=== PATIENT | male | born 1990 | race Caucasian/White ===

== ENCOUNTER 2020-12-09 17:12 | Emergency (ER) | payer MEDICAID, SELFPAY | END 2020-12-09 18:40 | disposition left against medical advice (07) | PROVIDERS: Emergency Provider Emergency Medicine | DX: Z76.0 Encounter for issue of repeat prescription (principal) ==

== ENCOUNTER 2020-12-11 08:26 | Emergency (ER) | payer MEDICAID, SELFPAY ==
[2020-12-11 08:32] VITALS: BP 122/80; PULSE 99; RESP 16; TEMP 36.4; O2SAT 100; BMI 18.4
[2020-12-11 10:01] LABS: MANUAL DIFF FLAG NO
[2020-12-11 10:03] LABS: Basophils Percent Auto 0.2 % (0-2); Eosinophils Absolute Auto 0.1 X10*3/uL (0.0-0.4); Eosinophils Percent Auto 1.7 % (0-4); Hematocrit 44.4 % (42-52); Imm Gran Abs Auto 0.02 X10*3/uL (0.00-0.03); Imm Gran Pct Auto 0.4 % (0.0-0.4); Lymphocytes Absolute Auto 1.5 X10*3/uL (1.2-4.9); Lymphocytes Percent Auto 33.1 % (20-40); Mean Corpuscular HGB Conc 33.8 g/dl (31.0-36.0); Mean Corpuscular Volume 91.7 fL (80-98); Mean Platelet Volume 9.1 fL (9.4-12.4); Monocytes Absolute Auto 0.7 X10*3/uL (0.1-1.2); Monocytes Percent Auto 15.3 % (2-11); Neutrophils Absolute Auto 2.3 X10*3/uL (2.0-8.3); Neutrophils Percent Auto 49.3 % (45-73); Platelet Count 218 X10*3/uL (160-400); Red Blood Count 4.84 X10*6/uL (4.60-5.80); Red Cell Distribution Width 12.1 % (11.0-16.0); White Blood Count 4.6 X10*3/uL (4.8-10.8)
[2020-12-11 10:18] LABS: Alanine Aminotransferase 57 U/L (0-40); Albumin Level 4.3 g/dL (3.5-5.0); Alkaline Phosphatase 65 U/L (39-117); Anion Gap 11 (12-20); Aspartate Amino Transferase 34 U/L (5-37); Bilirubin Total 0.5 mg/dL (0.0-1.0); Blood Urea Nitrogen 14 mg/dL (9-16); Calcium 10.1 mg/dL (8.4-10.2); Carbon Dioxide 30 mmol/L (22-29); Chloride 102 mmol/L (96-108); Creatinine Clr Calc Pharmacy 106.5; Estimated Glomerular Filt Rate > 60; Glucose Random 83 mg/dL (60-115); Potassium 4.9 mmol/L (3.3-5.1); Sodium 138 mmol/L (135-145); Total Protein 7.8 g/dL (6.5-8.0)
--- NOTE | 2020-12-11 18:55 | ED_ITS ---
HPI - General Adult General Chief complaint: General Medical Stated complaint: med refill Time Seen by Provider: 12/11/20 09:09 Source: patient Mode of arrival: ambulatory Limitations: no limitations History of Present Illness HPI narrative: 30-year-old male who is HIV positive presents for med refill request of his Biktarvy. The patient was prescribed this last from [facility] in [place], patient has not had this medication for over a year. Patient reports being afraid to go outside due to the COVID pandemic. Patient diagnosed HIV positive 3 years ago. Patient has had no new sex partners, has a steady boyfriend. Patient is afraid to get the COVID vaccine, but thinks maybe he should. Patient feels well, no physical complaints. He does tell me that he recently stopped abusing methamphetamines 9 days ago. Related Data Previous Rx's Medication Instructions Recorded bictegravir 50 mg-emtricitabine 1 tab PO DAILY #30 tab 12/11/20 200 mg-tenofovir alafenam 25 mg tablet (Biktarvy) Allergies Allergy/AdvReac Type Severity Reaction Status Date / Time shellfish derived Allergy Swelling Verified 12/11/20 08:35 Review of Systems Constitutional: Constitutional: Denies body ache(s), Denies chills, Denies fatigue, Denies fever(s), Denies headache(s), Denies malaise and Denies weakness Eyes: Eyes: Denies diplopia ENT: Denies vertigo, Denies dizziness, Denies otalgia, Denies headache(s), Denies mouth pain, Denies post nasal drip, Denies sinus pain, Denies sinus pressure, Denies sore throat and Denies throat swelling Cardiovascular: Cardiovascular: Denies chest pain, Denies syncope, Denies leg edema, Denies lightheadedness, Denies Loss of Consciousness, Denies palpitations and Denies dyspnea Respiratory: Respiratory: Denies chest congestion, Denies cough and Denies dyspnea Musculoskeletal: Musculoskeletal: Reports no additional musculoskeletal complaints Neurologic: Denies confusion, Denies vertigo, Denies dizziness, Denies syncope, Denies headache(s) and Denies weakness Psychiatric: Psychiatric: Denies anxiety, Denies confusion and Denies depression Endocrine: Endocrine: Denies fatigue and Denies palpitations Allergic/Immunologic: Allergic/Immunologic: Denies throat swelling PMFSH Past Medical History Medical History HIV (human immunodeficiency virus infection) Social History Social History Advance Directives: No Advance Directives Information Provided: No Physical Exam Vital Signs: Vital Signs: Last Vital Signs Temp 97.5 F 12/11/20 08:32 Pulse 99 12/11/20 08:32 Resp 16 12/11/20 08:32 BP 122/80 12/11/20 08:32 Pulse Ox 100 12/11/20 08:32 Body Mass Index 18.4 Const: General: No confusion Nutritional Appearance: well nourished Orientation/consciousness: No confusion Limitations: no limitations HENMT: Head: Yes normal to inspection, Yes normocephalic and Yes atraumatic Ears: hearing grossly normal bilaterally, external ears normal, TM's normal bilaterally and EAC's normal General nose exam: Normal external nose present Face and sinus: Yes normal facial exam and Yes sinuses nontender Mouth: Normal oral and palatal mucosa present Throat: Yes posterior oropharynx normal Eyes: Conjunctivae: conjunctivae normal Pupils: Equal, round and reactive pupils present EOM: EOMs intact bilaterally Neck: Neck: Yes full ROM, Yes no lymphadenopathy and Yes supple Resp: Effort & Inspection: normal respiratory effort and able to speak in complete sentences Auscultation: clear to auscultation bilaterally, no crackles, no rales, no rhonchi and no wheezes Cardio: Rate: regular rate Rhythm: regular rhythm Heart sounds: S1 normal heart sound present and S2 normal heart sound present Skin: General skin exam: no rashes or lesions noted Neuro: General: No confusion Cranial nerves: Yes Equal, round and reactive pupils present Extrem: General: Yes normal to inspection and Yes full ROM Psych: Appearance: grossly normal Affect: normal affect Attitude: co operative Thought process: Normal thought process present Course Course Course Narrative: A 30-year-old HIV-positive presents for medication refill. Liver function tests just mildly elevated. Patient does not have a PCP, gave patient list of [place] PCPs to call. Took HIV titers, counseled patient that this would be good to have a baseline to see how the medication is working, and can be something that his primary care provider, when he finds one, can access and follow. Medical Decision Making Lab Data Result diagrams: 12/11/20 09:54 12/11/20 09:54 Labs: Lab Results 12/11/20 12/11/20 Range/Units 09:54 09:54 WBC 4.6 L (4.8-10.8) X10*3/uL RBC 4.84 (4.60-5.80) X10*6/uL Hgb 15.0 (14.0-18.0) g/dl Hct 44.4 (42-52) % MCV 91.7 (80-98) fL MCH 31.0 (27.0-33.0) pg MCHC 33.8 (31.0-36.0) g/dl RDW 12.1 (11.0-16.0) % Plt Count 218 (160-400) X10*3/uL MPV 9.1 L (9.4-12.4) fL Immature Gran % (Auto) 0.4 (0.0-0.4) % Neut % (Auto) 49.3 (45-73) % Lymph % (Auto) 33.1 (20-40) % [place] % (Auto) 15.3 H (2-11) % Eos % (Auto) 1.7 (0-4) % Baso % (Auto) 0.2 (0-2) % Lymph # (Auto) 1.5 (1.2-4.9) X10*3/uL [place] # (Auto) 0.7 (0.1-1.2) X10*3/uL Eos # (Auto) 0.1 (0.0-0.4) X10*3/uL Baso # (Auto) 0.0 (0.0-0.2) X10*3/uL Abs Immat Gran (auto) 0.02 (0.00-0.03) X10*3/uL Absolute Neuts (auto) 2.3 (2.0-8.3) X10*3/uL Absolute Nucleated RBC 0.000 (0.0-0.012) X10*3/uL Nucleated RBC % (auto) 0.0 (0.0-0.2) /100WBC Sodium 138 (135-145) mmol/L Potassium 4.9 (3.3-5.1) mmol/L Chloride 102 (96-108) mmol/L Carbon Dioxide 30 H (22-29) mmol/L Anion Gap 11 L (12-20) BUN 14 (9-16) mg/dL Creatinine 0.82 (0.5-1.4) mg/dL Estim Creat Clear Calc 106.5 Estimated GFR > 60 Random Glucose 83 (60-115) mg/dL Calcium 10.1 (8.4-10.2) mg/dL Total Bilirubin 0.5 (0.0-1.0) mg/dL AST 34 (5-37) U/L ALT 57 H (0-40) U/L Alkaline Phosphatase 65 (39-117) U/L Total Protein 7.8 (6.5-8.0) g/dL Albumin 4.3 (3.5-5.0) g/dL Discharge Plan Discharge Clinical Impression: HIV disease Patient Disposition: Home, Self-Care Instructions: HIV Transmission (ED), HIV Infection (ED) Additional Instructions: PLease flower buncher or picker the Biktary from the pharmacy. Please call 1 of the primary care doctors on the list to establish care. If they are part of the [facility]ista call system, they will have access to her labs. Your HIV titers will not come back today, but a future PCP will be able to access them. I am very excited for you to get your COVID vaccination today! I hope that goes well. Prescriptions: New Biktarvy 50-200-25 mg tablet 1 tab PO DAILY Qty: 30 RF: 1 Interventions: ED Discharge Assessment Last Done: 12/11/20 10:57 Discharge Date/Time: 12/11/20 10:58
[2020-12-15 12:12] LABS: HIV RNA PCR Qn Copies 68800 copies/mL (NOT DETECTED); HIV RNA PCR Qn Log Copies 4.84 (NOT DETECTED)
== END 2020-12-11 10:58 | disposition home or self-care (01) ==
PROVIDERS: Physician Assistant; Emergency Provider Emergency Medicine Emergency Medical Services
DX: Z76.0 Encounter for issue of repeat prescription (principal); Z21 Asymptomatic human immunodeficiency virus [HIV] infection status; Z79.899 Other long term (current) drug therapy
CPT/HCPCS: 36415; 80053; 85025; 87536; 99283

== ENCOUNTER 2021-04-10 14:36 | Emergency (ER) | payer MEDICAID, SELFPAY ==
--- NOTE | 2021-04-10 | ECG_ITS ---
Test Reason : Chest Pain Blood Pressure : / mmHG Vent. Rate : 106 BPM Atrial Rate : 106 BPM P-R Int : 136 ms QRS Dur : 082 ms QT Int : 310 ms P-R-T Axes : 082 097 067 degrees QTc Int : 411 ms Sinus tachycardia Right atrial enlargement Rightward axis Pulmonary disease pattern Abnormal ECG No previous ECGs available Referred By: Generic ED Physician Electronically Signed By:ELY MATHIS MD
--- NOTE | ~2021-04-10 | XR_ITS ---
EXAMINATION: PORTABLE CHEST 1 VIEW CLINICAL INFORMATION: chest pain, sob . COMPARISON: No recent pertinent prior studies are available for comparison. TECHNIQUE: Portable frontal view of the chest was obtained. FINDINGS: The lungs are well expanded. No focal infiltrate, effusion, edema, or pneumothorax. Cardiac and mediastinal silhouettes are within normal limits for technique. No acute bony abnormality seen. XR/XR chest 1V IMPRESSION: No evidence of acute disease.
[2021-04-10 15:00] VITALS: BP 118/71; PULSE 103; TEMP 36.9; O2SAT 98; BMI 19.2
[2021-04-10 15:24] LABS: IDNOW Serial# 9DD0AD1C; Strep A Nucleic Acid Negative (Negative)
[2021-04-10 15:29] LABS: COVID-19 Test Negative (Negative)
--- NOTE | 2021-04-10 17:24 | ED_ITS ---
HPI - Chest Pain General Chief Complaint: Chest Pain Stated Complaint: chest pain/throat pain Time Seen by Provider: 04/10/21 17:24 Source: patient Mode of arrival: ambulatory Limitations: no limitations History of Present Illness HPI narrative: This is a 31-year-old male pmhx crystal meth abuse, HIV (stopped taking medication recently) that presents to the emergency department with a sore throat and palpitations since this morning. Patient tells me that he feels like his throat is very full, and it stings a little bit. He tells me that he has been having palpitations/chest discomfort, worse with anxiety. Patient tells me that this happens intermittently. He tells me he is under lot of stress/anxiety, he is tearful upon my exam. He tells me that his partner March 06, he used to be homeless and use to live out of the vehicle of his partner out [place] the [place], when his partner diet he moved to [facility] where his mother lives. He tells me he has no resources, no primary care provider. He tells me he is HIV positive however he has not been receiving treatment, he tells me he was using a lot of crystal meth, tells me he has not used for a few days. He tells me he is trying to seek detox, he is feeling anxious and depressed. He is also feeling hopeless however he is not suicidal or homicidal. He denies visual, auditory and tactile hallucinations. He denies homicidal ideation. He has no other complaints at this time. MD complaint: chest pain Onset (ago): day(s) (1) Timing of current episode: episodic Prior episodes: Yes Pain location: substernal Pain radiation: none Severity: mild Quality: tightness Relieving factors: nothing Exacerbating factors: stress Treatment prior to arrival: none Related Data Previous Rx's Medication Instructions Recorded bictegravir 50 mg-emtricitabine 1 tab PO DAILY #30 tab 12/11/20 200 mg-tenofovir alafenam 25 mg tablet (Biktarvy) Allergies Allergy/AdvReac Type Severity Reaction Status Date / Time shellfish derived Allergy Swelling Verified 12/11/20 08:35 Review of Systems Review of Systems: Constitutional : No Weight loss, No Fever, No Chills, No Fatigue, No Malaise ENT/Mouth : No sore throat, No Rhinorrhea Eyes: No Eye Pain, No Swelling, No Redness Cardiovascular : No Chest Pain, No SOB, No Dyspnea on Exertion, No Orthopnea, No Edema, + Palpitations Respiratory : No Cough, No Sputum, No Wheezing Gastrointestinal : No Nausea, No Vomiting, No Diarrhea, No Constipation, No abdominal Pain, No Hematochezia, No Melena Genitourinary : No Dysuria, No Urinary Frequency, No Hematuria, Musculoskeletal : No joint pain, No Myalgias, No Joint Swelling Skin : No Skin Lesions, No rash Neuro : No Weakness, No Numbness, No Dizziness, No Headache Psych : + Anxiety/Panic, + Depression No SI/HI All other systems reviewed and are negative Yes all other systems are reviewed and are negative [facility] Past Medical History Attestation statement: The following information was validated with the patient. Source: old records reviewed and nursing notes reviewed Medical History HIV (human immunodeficiency virus infection) Social History Social History Advance Directives: No Advance Directives Information Provided: No Physical Exam Vital Signs: Vital Signs: Last Vital Signs Temp 98.2 F 04/10/21 17:57 Pulse 99 04/10/21 17:57 Resp 20 04/10/21 17:57 BP 125/64 04/10/21 17:57 Pulse Ox 99 04/10/21 17:57 BMI result Body Mass Index 19.2 VSS Appearance: Alert.? Oriented X3.? No acute distress.?Appears anxious. Head: Normocephalic, atraumatic, no step-offs or deformities Eyes: Pupils equal, round and reactive to light.? ENT: Pharynx normal.? Neck: Normal inspection.? Neck supple.? CVS: Normal heart rate and rhythm.? Pulses normal.? Respiratory: No respiratory distress.? Breath sounds normal.? Abdomen: Soft and nontender.? Skin: Skin warm and dry.? Normal skin color.? Normal skin turgor.? Extremities: No lower extremity edema.? No calf ttp. 5/5 strength to bilateral upper and lower extremities Back: No midline tenderness, no C-spine tenderness, full range of motion, no CVA tenderness bilaterally Neuro: Oriented X 3.? No motor deficit.? No sensory deficit. CN 2-12 intact Course Reevaluation(s) Reevaluation #1: Patient notes CBC with no acute abnormalities, chemistry with no acute electrolyte abnormalities. Transaminases noted to be slightly elevated. Patient's urine is clean. Strep negative. COVID negative. Time: 18:38 Reevaluation #2: Chest x-ray within normal limits. EKG WNL. Trop negative. Unlikley ACS. Patient tells me he thinks his throat is hurting because he has been crying so much since he lost his partner. At this time patient will be placed in physician observation to allow more time for patient to be evaluated by the behavioral health team. At time that evaluation was started patient was tearful, anxious denying SI and HI. Vital signs were stable. Time: 20:14 MDM - Chest Pain MDM Narrative Medical decision making narrative: [birth year] 31 yo m pmhx hiv presents to ed w/ complaints of palpitations, sore thorat, anxiety, depression and seeking detox X1 days. Patient reports using crystal meth regularly. Reports recently losing his significant other. Has a diagnosis of HIV however he is stop treatment due to his crystal meth use. He is seeking help. Physical exam benign Plan at this time is to obtain basic labs, troponin, EKG, MENDEZ, UA. Will rule out ACS. However, history most consistent with anxiety. Medical Records Data Attestation: I reviewed the patient's medical records. Lab Data Attestation: I reviewed the patient's lab results. Result diagrams: 04/10/21 17:55 04/10/21 17:55 Labs: Lab Results 04/10/21 04/10/21 04/10/21 Range/Units 15:06 15:13 17:55 WBC 6.6 (4.8-10.8) X10*3/uL RBC 4.73 (4.60-5.80) X10*6/uL Hgb 14.7 (14.0-18.0) g/dl Hct 42.8 (42.0-52.0) % MCV 90.5 (80.0-98.0) fL MCH 31.1 (27.0-33.0) pg MCHC 34.3 (31.0-36.0) g/dl RDW 12.6 (11.0-16.0) % Plt Count 252 (160-400) X10*3/uL MPV 9.4 (9.4-12.4) fL Immature Gran % (Auto) 0.8 H (0.0-0.4) % Neut % (Auto) 48.0 (45-73) % Lymph % (Auto) 36.3 (20-40) % [place] % (Auto) 13.2 H (2-11) % Eos % (Auto) 1.4 (0-4) % Baso % (Auto) 0.3 (0-2) % Lymph # (Auto) 2.4 (1.2-4.9) X10*3/uL [place] # (Auto) 0.9 (0.1-1.2) X10*3/uL Eos # (Auto) 0.1 (0.0-0.4) X10*3/uL Baso # (Auto) 0.0 (0.0-0.2) X10*3/uL Abs Immat Gran (auto) 0.05 H (0.00-0.03) X10*3/uL Absolute Neuts (auto) 3.2 (2.0-8.3) x10*3/uL Absolute Nucleated RBC 0.000 (0.0-0.012) X10*3/uL Nucleated RBC % (auto) 0.0 (0.0-0.2) /100WBC Sodium (135-145) mmol/L Potassium (3.3-5.1) mmol/L Chloride (96-108) mmol/L Carbon Dioxide (22-29) mmol/L Anion Gap (12-20) BUN (9-16) mg/dL Creatinine (0.5-1.4) mg/dL Estim Creat Clear Calc Estimated GFR Random Glucose (60-115) mg/dL Calcium (8.4-10.2) mg/dL Total Bilirubin (0.0-1.0) mg/dL AST (5-37) U/L ALT (0-40) U/L Alkaline Phosphatase (39-117) U/L Troponin I High Sens (<3.5-35.0) ng/L Total Protein (6.5-8.0) g/dL Albumin (3.5-5.0) g/dL Urine Color Urine Appearance Urine pH (5.0-8.0) Ur Specific [place] (1.005-1.025) Urine Protein (NEG-TRACE) MG/DL Urine Glucose (UA) (NEG) MG/DL Urine Ketones (NEG) MG/DL Urine Blood (NEG) Urine Nitrite (NEG) Ur Leukocyte Esterase (NEG) Urine RBC (0) /HPF Urine WBC (0-4) /HPF Ur Squamous Epith Cells /LPF Urine Bacteria /LPF Urine Opiates Screen (Not Detect) Urine Fentanyl Screen (Not Detect) Ur Barbiturates Screen (Not Detect) Ur Phencyclidine Scrn (Not Detect) Ur Amphetamines Screen (Not Detect) U Benzodiazepines Scrn (Not Detect) Urine Cocaine Screen (Not Detect) U Marijuana (THC) Screen (Not Detect) COVID-19 (JOSÉ MIGUEL) Negative (Negative) COVID-19 Clin Com See Note S. pyogenes GrpA JONEL Negative (Negative) 04/10/21 04/10/21 04/10/21 Range/Units 17:55 17:55 18:05 WBC (4.8-10.8) X10*3/uL RBC (4.60-5.80) X10*6/uL Hgb (14.0-18.0) g/dl Hct (42.0-52.0) % MCV (80.0-98.0) fL MCH (27.0-33.0) pg MCHC (31.0-36.0) g/dl RDW (11.0-16.0) % Plt Count (160-400) X10*3/uL MPV (9.4-12.4) fL Immature Gran % (Auto) (0.0-0.4) % Neut % (Auto) (45-73) % Lymph % (Auto) (20-40) % [place] % (Auto) (2-11) % Eos % (Auto) (0-4) % Baso % (Auto) (0-2) % Lymph # (Auto) (1.2-4.9) X10*3/uL [place] # (Auto) (0.1-1.2) X10*3/uL Eos # (Auto) (0.0-0.4) X10*3/uL Baso # (Auto) (0.0-0.2) X10*3/uL Abs Immat Gran (auto) (0.00-0.03) X10*3/uL Absolute Neuts (auto) (2.0-8.3) x10*3/uL Absolute Nucleated RBC (0.0-0.012) X10*3/uL Nucleated RBC % (auto) (0.0-0.2) /100WBC Sodium 138 (135-145) mmol/L Potassium 4.6 (3.3-5.1) mmol/L Chloride 102 (96-108) mmol/L Carbon Dioxide 29 (22-29) mmol/L Anion Gap 12 (12-20) BUN 18 H (9-16) mg/dL Creatinine 0.95 (0.5-1.4) mg/dL Estim Creat Clear Calc 94.8 Estimated GFR > 60 Random Glucose 90 (60-115) mg/dL Calcium 10.2 (8.4-10.2) mg/dL Total Bilirubin < 0.2 (0.0-1.0) mg/dL AST 50 H D (5-37) U/L ALT 70 H (0-40) U/L Alkaline Phosphatase 87 D (39-117) U/L Troponin I High Sens < 3.5 (<3.5-35.0) ng/L Total Protein 7.9 (6.5-8.0) g/dL Albumin 4.0 (3.5-5.0) g/dL Urine Color STRAW Urine Appearance CLEAR Urine pH 7.0 (5.0-8.0) Ur Specific [place] 1.010 (1.005-1.025) Urine Protein NEG (NEG-TRACE) MG/DL Urine Glucose (UA) NEG (NEG) MG/DL Urine Ketones NEG (NEG) MG/DL Urine Blood NEG (NEG) Urine Nitrite NEG (NEG) Ur Leukocyte Esterase NEG (NEG) Urine RBC 0 (0) /HPF Urine WBC 0-2 (0-4) /HPF Ur Squamous Epith Cells TRACE /LPF Urine Bacteria NONE /LPF Urine Opiates Screen (Not Detect) Urine Fentanyl Screen (Not Detect) Ur Barbiturates Screen (Not Detect) Ur Phencyclidine Scrn (Not Detect) Ur Amphetamines Screen (Not Detect) U Benzodiazepines Scrn (Not Detect) Urine Cocaine Screen (Not Detect) U Marijuana (THC) Screen (Not Detect) COVID-19 (JOSÉ MIGUEL) (Negative) COVID-19 Clin Com S. pyogenes GrpA JONEL (Negative) 04/10/21 Range/Units 19:17 WBC (4.8-10.8) X10*3/uL RBC (4.60-5.80) X10*6/uL Hgb (14.0-18.0) g/dl Hct (42.0-52.0) % MCV (80.0-98.0) fL MCH (27.0-33.0) pg MCHC (31.0-36.0) g/dl RDW (11.0-16.0) % Plt Count (160-400) X10*3/uL MPV (9.4-12.4) fL Immature Gran % (Auto) (0.0-0.4) % Neut % (Auto) (45-73) % Lymph % (Auto) (20-40) % [place] % (Auto) (2-11) % Eos % (Auto) (0-4) % Baso % (Auto) (0-2) % Lymph # (Auto) (1.2-4.9) X10*3/uL [place] # (Auto) (0.1-1.2) X10*3/uL Eos # (Auto) (0.0-0.4) X10*3/uL Baso # (Auto) (0.0-0.2) X10*3/uL Abs Immat Gran (auto) (0.00-0.03) X10*3/uL Absolute Neuts (auto) (2.0-8.3) x10*3/uL Absolute Nucleated RBC (0.0-0.012) X10*3/uL Nucleated RBC % (auto) (0.0-0.2) /100WBC Sodium (135-145) mmol/L Potassium (3.3-5.1) mmol/L Chloride (96-108) mmol/L Carbon Dioxide (22-29) mmol/L Anion Gap (12-20) BUN (9-16) mg/dL Creatinine (0.5-1.4) mg/dL Estim Creat Clear Calc Estimated GFR Random Glucose (60-115) mg/dL Calcium (8.4-10.2) mg/dL Total Bilirubin (0.0-1.0) mg/dL AST (5-37) U/L ALT (0-40) U/L Alkaline Phosphatase (39-117) U/L Troponin I High Sens (<3.5-35.0) ng/L Total Protein (6.5-8.0) g/dL Albumin (3.5-5.0) g/dL Urine Color Urine Appearance Urine pH (5.0-8.0) Ur Specific [place] (1.005-1.025) Urine Protein (NEG-TRACE) MG/DL Urine Glucose (UA) (NEG) MG/DL Urine Ketones (NEG) MG/DL Urine Blood (NEG) Urine Nitrite (NEG) Ur Leukocyte Esterase (NEG) Urine RBC (0) /HPF Urine WBC (0-4) /HPF Ur Squamous Epith Cells /LPF Urine Bacteria /LPF Urine Opiates Screen Not Detected (Not Detect) Urine Fentanyl Screen Not Detected (Not Detect) Ur Barbiturates Screen Not Detected (Not Detect) Ur Phencyclidine Scrn Not Detected (Not Detect) Ur Amphetamines Screen Not Detected (Not Detect) U Benzodiazepines Scrn Not Detected (Not Detect) Urine Cocaine Screen Not Detected (Not Detect) U Marijuana (THC) Screen Not Detected (Not Detect) COVID-19 (JOSÉ MIGUEL) (Negative) COVID-19 Clin Com S. pyogenes GrpA JONEL (Negative) Imaging Data Chest x-ray: Attestation: I personally reviewed and interpreted this imaging study as follows: Radiologist's impression: FINDINGS: The lungs are well expanded. No focal infiltrate, effusion, edema, or pneumothorax. Cardiac and mediastinal silhouettes are within normal limits for technique. No acute bony abnormality seen. XR/XR chest 1V IMPRESSION: No evidence of acute disease. ? ECG Data ECG #1: Attestation: I personally reviewed and interpreted this ECG as follows: ECG interpretation date: 04/10/21 ECG interpretation time: 14:59 Prior ECG tracings: not available for review Interpretation: Ventricular rate of 106, MT normal, QRS normal, QT/QTC normal. EKG shows sinus tachycardia, and right atrial enlargement with a right axis deviation does not show any signs of acute ischemia. No previous EKGs to compare with Critical Care Time Critical Care Time Critical Care Time: No Discharge Plan Discharge Clinical Impression: Chest pain not due to acute coronary syndrome, Anxiety, Depression Patient Disposition: Still a Patient Prescriptions: No Action Biktarvy 50-200-25 mg tablet 1 tab PO DAILY Qty: 30 RF: 1
[2021-04-10 17:57] VITALS: BP 125/64; PULSE 99; RESP 20; TEMP 36.8; O2SAT 99
[2021-04-10 18:03] LABS: MANUAL DIFF FLAG NO
[2021-04-10 18:11] LABS: Appearance Urine CLEAR; Color Urine STRAW; Glucose Urine UA NEG (NEG); Leukocyte Esterase Urine NEG (NEG); Nitrite Urine NEG (NEG); Urine Blood NEG (NEG); Urine Ketones NEG (NEG); Urine Protein NEG (NEG-TRACE)
[2021-04-10 18:19] LABS: Squamous Epithelial Cell Urine TRACE /LPF
[2021-04-10 18:20] LABS: RBC Urine 0 /HPF (0); WBC Urine 0-2 /HPF (0-4)
[2021-04-10 18:22] LABS: Alanine Aminotransferase 70 U/L (0-40); Alkaline Phosphatase 87 U/L (39-117); Anion Gap 12 (12-20); Aspartate Amino Transferase 50 U/L (5-37); Bilirubin Total < 0.2 mg/dL (0.0-1.0); Blood Urea Nitrogen 18 mg/dL (9-16); Calcium 10.2 mg/dL (8.4-10.2); Carbon Dioxide 29 mmol/L (22-29); Chloride 102 mmol/L (96-108); Creatinine Clr Calc Pharmacy 94.8; Estimated Glomerular Filt Rate > 60; Glucose Random 90 mg/dL (60-115); Potassium 4.6 mmol/L (3.3-5.1); Sodium 138 mmol/L (135-145); Total Protein 7.9 g/dL (6.5-8.0)
[2021-04-10 18:23] LABS: Troponin-I High Sensitivity < 3.5 ng/L (<3.5-35.0)
[2021-04-10 18:32] LABS: Basophils Percent Auto 0.3 % (0-2); Eosinophils Absolute Auto 0.1 X10*3/uL (0.0-0.4); Eosinophils Percent Auto 1.4 % (0-4); Hematocrit 42.8 % (42.0-52.0); Hemoglobin 14.7 g/dl (14.0-18.0); Imm Gran Abs Auto 0.05 X10*3/uL (0.00-0.03); Imm Gran Pct Auto 0.8 % (0.0-0.4); Lymphocytes Absolute Auto 2.4 X10*3/uL (1.2-4.9); Lymphocytes Percent Auto 36.3 % (20-40); Mean Corpuscular HGB Conc 34.3 g/dl (31.0-36.0); Mean Corpuscular Hemoglobin 31.1 pg (27.0-33.0); Mean Corpuscular Volume 90.5 fL (80.0-98.0); Mean Platelet Volume 9.4 fL (9.4-12.4); Monocytes Absolute Auto 0.9 X10*3/uL (0.1-1.2); Monocytes Percent Auto 13.2 % (2-11); Neutrophils Absolute Auto 3.2 x10*3/uL (2.0-8.3); Platelet Count 252 X10*3/uL (160-400); Red Blood Count 4.73 X10*6/uL (4.60-5.80); Red Cell Distribution Width 12.6 % (11.0-16.0); White Blood Count 6.6 X10*3/uL (4.8-10.8)
--- NOTE | 2021-04-10 18:35 | MHC.RECOVSUP ---
? Reason for consult Recovery Support o Current location: ED1 o Identified substance use concern: Meth <del>-</del> <del>Overdose</del> <del>-</del> <del>Withdrawal</del> <del>-</del> <del>Seeking</del> <del>ATS</del> <del>(detox)</del> - Support ? Intervention: <del>o</del> <del>ATS</del> <del>bed</del> <del>search</del> <del>started/completed/in</del> <del>process</del> <del>o</del> <del>MAT</del> <del>started</del> <del>or</del> <del>to</del> <del>be</del> <del>started</del> o Community resources provided o Harm reduction discussion ? Plan: <del>o</del> <del>Referral</del> <del>to</del> <del>[facility]</del> <del>o</del> <del>Bed</del> <del>search</del> <del>in</del> <del>progress</del> <del>to</del> <del>o</del> <del>Follow</del> <del>up</del> <del>tomorrow</del> o Patient awaiting crisis evaluation o Patient to follow up with [facility] after discharge ? Additional information: Me with Patient and we talked about recovery and Harm Reduction.. We talk about [facility].. Patient was very interested in the recovery center.
--- NOTE | 2021-04-10 19:17 | PC.NURSE ---
SMART SHEET FOR N SENT
[2021-04-10 19:38] LABS: Amphetamine Screen Urine Not Detected (Not Detect); Barbiturates, Urine Not Detected (Not Detect); Benzodiazepines Screen Urine Not Detected (Not Detect); Cannabinoid Screen Urine Not Detected (Not Detect); Cocaine Screen Urine Not Detected (Not Detect); Fentanyl, urine Not Detected (Not Detect); Opiate Screen Urine Not Detected (Not Detect); Phencyclidine Screen Urine Not Detected (Not Detect)
--- NOTE | 2021-04-10 21:47 | PC.NURSE ---
Assumed care of pt Pt ate dinner No complaints at this time Pt resting on stretcher on his side Will continue to monitor
[2021-04-10 21:55] VITALS: BP 123/79; RESP 14; TEMP 37.1
--- NOTE | 2021-04-11 | MHC.CARE ---
Crisis consult requested by ED provider for pt who expressed ongoing feelings of depression and anxiety associated with the loss of his partner on 03/06/21 following an accidental overdose and struggling to manage his HIV and overall healthcare. N unable to send a clinician until the morning. CARE team met with pt for consultation. Pt was seen in the main ED room 1. He initially self presented to the ED with complaints of a sore throat and palpitations/anxiety. He was tearful and endorsed experiencing depressed mood, however denied any current thoughts of or suicide. He reported that he and his partner had been living in his partner's car on and off for a couple months, and last month they had argued while they were using meth together and he thought that his partner had gone to sleep, however he had overdosed and in the car with him and he didn't notice for what he assumes was over an hour later. After his partner , he moved to [facility], where he had previously survived while homeless, and returned to [place] to stay with his mother 4 days ago. He resumed taking his HIV medication after 2 months of not taking it and stopped using meth 2 days ago. Pt reported that he is hoping that he can get help for his mental health, substance use, and physical health. He has a history of individual therapy, intermittently throughout adolescence and was last in therapy approx 7 years ago. He was previously on Wellbutrin, prescribed by his previous HIV/Infectious Disease physician in [place] following receiving his HIV diagnosis, which he hasn't taken in the past two years. He reported that it had been helpful with his mood when he was taking it. He does not have a PCP or an infectious disease doctor at this time. Pt reported that he is in the process of applying for disability (HIV+ status) and has an appointment on 05/24/2021 to further review his application. The following referrals and information was discussed: Partial Hospitalization Program - for coping skills, identifying triggers, developing a healthy routine, and overall symptom management. Would benefit from the group therapy and short term psychiatry support. Outpatient therapy at [facility] - waitlist is lengthy, PHP was discussed as an interim support option, as he is in a more acute state of grieving with impaired daily functioning. He has additionally been given a list of other local [place] [facility] counseling agencies that he has been encouraged to contact re: possibly shorter wait lists. Intensive Outpatient Program - given information for [facility] in [place], explained the the program is similar to PHP but is less time consuming and focuses on early recovery and relapse prevention. [facility] - currently has PCC coverage, recommended switching plan to [facility]CO or [facility] for better health care support and management, phone number and website given for pt to explore the options and switch his plan when he's ready. Mobile crisis intervention - given [facility] crisis contact information and encouraged to utilize them for support to prevent future non-life threatening emergency department visits. Primary care - does not have a PCP, given information for [facility] and [facility]. Infectious disease - does not have an infectious disease doctor, referral made from ED, information will be on his discharge summary. Pt feels safe and comfortable with discharging home at this time. He is agreeable to receiving a follow up call from the CARE team on Sunday to check in with how he is feeling. ED provider updated re: outcome of consult and treatment recommendations.
--- NOTE | 2021-04-11 16:45 | MHC.CARE ---
FOLLOW UP FROM ED VISIT: CARE team contacted Bharat Mccann, coordinator at [facility]'s HIV/AIDS Project, to complete a referral for HIV case management services. This marketing underwriter then contacted pt to follow up with how he is feeling today and what his status is with referrals and information given to him during consultation the previous night. He reported that he had been contacted by [facility] re: outpatient therapy referral and is on the wait list for an intake appt and therapy assignment, and that he went to [facility] this morning and has an appointment tomorrow with someone at the [facility] for being connected with a recovery manager. He reported that he is feeling better today and has been keeping busy. He stated that he is in a better head space and is motivated for getting connected with supports and treatment. This marketing underwriter reviewed the information that was given to him the previous night and was given the phone number for the CARE team if he has any questions about the referrals and recommendations made.
== END 2021-04-11 02:17 | disposition home or self-care (01) ==
PROVIDERS: Physician Assistant; Emergency Provider Internal Medicine
DX: R07.89 Other chest pain (principal); F41.1 Generalized anxiety disorder; F43.0 Acute stress reaction; F33.1 Major depressive disorder, recurrent, moderate; Z79.899 Other long term (current) drug therapy; Z20.822 Contact with and (suspected) exposure to COVID-19
CPT/HCPCS: 36415; 71045; 80053; 80307; 81001; 84484; 85025; 87635; 87651; 93005; 99284

== ENCOUNTER 2022-05-19 08:20 | Observation (INO) | payer MEDICAID, SELFPAY ==
[2022-05-19 08:40] VITALS: BP 107/58; PULSE 103; RESP 16; TEMP 36.9; O2SAT 98; BMI 19.2
--- NOTE | 2022-05-19 08:51 | MHC.EDTECH ---
Pt refused labs due to not being hydrated enough , will try again later.
[2022-05-19 09:18] LABS: IDNOW Serial# 9DB6401D; Influenza A Negative (Negative); Influenza B2 Negative (Negative)
[2022-05-19 09:28] LABS: IDNOW Serial# 55D5AD1C
[2022-05-19 09:29] LABS: COVID-19 Test Negative (Negative)
[2022-05-19 10:05] LABS: Hematocrit 38.3 % (42.0-52.0); Hemoglobin 13.6 g/dl (14.0-18.0); Mean Corpuscular HGB Conc 35.5 g/dl (31.0-36.0); Mean Corpuscular Hemoglobin 30.2 pg (27.0-33.0); Mean Corpuscular Volume 85.1 fL (80.0-98.0); Mean Platelet Volume 9.7 fL (9.4-12.4); Platelet Count 166 X10*3/uL (160-400); White Blood Count 6.4 X10*3/uL (4.8-10.8)
--- NOTE | 2022-05-19 10:17 | MHC.EDTECH ---
I made Pt aware that we needed to draw one more tube of blood, and he said that's fine, but you have to take it from the IV line . I told him we were unable to do that, and he refused the blood draw and cherie his voice stating call the police right now, I'm filing a police report. videogame tester Sahrda aware.
[2022-05-19 10:26] LABS: Alanine Aminotransferase 11 U/L (0-40); Albumin Level 3.2 g/dL (3.5-5.0); Alkaline Phosphatase 56 U/L (39-117); Anion Gap 11 (12-20); Aspartate Amino Transferase 20 U/L (5-37); Bilirubin Direct < 0.2 mg/dL (0.0-0.5); Bilirubin Total 0.6 mg/dL (0.0-1.0); Blood Urea Nitrogen 13 mg/dL (9-16); Calcium 8.1 mg/dL (8.4-10.2); Carbon Dioxide 28 mmol/L (22-29); Chloride 95 mmol/L (96-108); Creatinine Clr Calc Pharmacy 120.6; Estimated Glomerular Filt Rate > 60; Glucose Random 96 mg/dL (60-115); Lipase 11 U/L (8-78); Magnesium 1.6 mg/dL (1.6-2.6); Potassium 3.5 mmol/L (3.3-5.1); Sodium 130 mmol/L (135-145); Total Protein 6.2 g/dL (6.5-8.0)
[2022-05-19 10:31] LABS: Lymphocytes Absolute Manual 0.6 X10*3/uL (1.2-4.9); Lymphocytes Percent Manual 10 % (20-40); Monocytes Absolute Manual 0.6 X10*3/uL (0.1-1.2); Monocytes Percent Manual 10 % (2-11); Neutrophils Absolute Manual 5.1 X10*3/uL (2.0-8.3); Neutrophils Percent Manual 43 % (45-73)
[2022-05-19 10:33] LABS: Band Neutrophils Percent 37 % (3-5)
[2022-05-19 10:35] LABS: Platelet Estimate NORMAL (NORMAL); Platelet Morphology Comment NORMAL; RBC Morphology NORMAL
[2022-05-19] MEDS: Ketorolac Tromethamine 15 MG/ML VIAL IVPUSH (10:35)
[2022-05-19] MEDS: 0.9 % Sodium Chloride 1,000 ML 999 ML IV (10:35)
--- NOTE | 2022-05-19 10:40 | ED.NAVMDI ---
HPI - Nausea/Vomiting/Diarrhea General Chief complaint: Nausea/Vomiting/Diarrhea Stated complaint: severe diarrhea Time Seen by Provider: 05/19/22 09:14 Source: patient and EMS Mode of arrival: EMS History of Present Illness HPI Narrative: 32-year-old male with past medical history of HIV noncompliant on antiviral medication presenting to the ED complaining of watery nonbloody diarrhea x3 days. Admits returned from [place] yesterday. Patient suspects food poisoning. Reports mild abdominal discomfort. Denies fever, chills, nausea, vomiting, dysuria/hematuria MD elicited complaint: nausea, diarrhea and abdominal pain Related Data Home Medications Medication Instructions Recorded Confirmed bictegravir 50 mg-emtricitabine 1 tab PO DAILY 05/19/22 05/19/22 200 mg-tenofovir alafenam 25 mg tablet (Biktarvy) bupropion HCl 150 mg tablet,12 hr 150 mg PO DAILY 05/19/22 05/19/22 sustained-release trazodone 50 mg tablet 1 tab PO BEDTIME 05/19/22 05/19/22 Allergies Allergy/AdvReac Type Severity Reaction Status Date / Time shellfish derived Allergy Swelling Verified 12/11/20 08:35 Review of Systems Review of Systems: Constitutional: No Fever, No Chills, No Night Sweats, + Fatigue, + Malaise ENT/Mouth: No Ear Pain, No Nasal Congestion, No sore throat, No Rhinorrhea, No Swallowing Difficulty Eyes: No Eye Pain, No Swelling, No Redness,No Vision Changes Cardiovascular: No Chest Pain, No SOB, No Dyspnea on Exertion, No Orthopnea, No Edema, No Palpitations Respiratory: No Cough, No Sputum, No Dyspnea Gastrointestinal: + Nausea, No Vomiting, + Diarrhea, No Constipation, + Abdominal pain, No Hematochezia, No Melena Genitourinary: No irregular bleeding, No Dysuria, No Urinary Frequency, No Hematuria, No Flank Pain, No Urinary Flow Changes, No Hesitancy Musculoskeletal: No joint pain, No Myalgias, No Joint Swelling Skin: No Skin Lesions, No rash Neuro: No Weakness, No Numbness, No Loss of Consciousness, No Dizziness, No Headache Yes all other systems are reviewed and are negative Constitutional: Constitutional: Reports as per [facility] Past Medical History Attestation statement: The following information was validated with the patient. Medical History (Updated 05/19/22 @ 13:18 by Dino Jett MD) HIV (human immunodeficiency virus infection) Social History Social History Advance Directives: No Advance Directives Information Provided: Yes Physical Exam Vital Signs: Vital Signs: Last Vital Signs Temp 100.4 F 05/19/22 18:30 Pulse 100 05/19/22 15:59 Resp 18 05/19/22 15:59 BP 128/69 05/19/22 15:59 Pulse Ox 98 05/19/22 15:59 O2 Del Method 05/19/22 15:59 BMI result Body Mass Index 19.2 Const: General: cooperative and no acute distress Orientation/consciousness: patient oriented x3 Limitations: no limitations HEENT: Head: Yes normal to inspection and Yes atraumatic Ears: hearing grossly normal bilaterally General nose exam: Normal external nose present Face and sinus: Yes normal facial exam Eyes: General: appearance normal, both eyes and all related structures EOM: EOMs intact bilaterally Neck: Neck: Yes normal visual inspection and Yes no meningeal signs Resp: Effort & Inspection: normal respiratory effort and no respiratory distress Auscultation: clear to auscultation bilaterally Cardio: Rate: regular rate Heart sounds: S1 normal heart sound present and S2 normal heart sound present GI: Inspection: Yes normal to inspection Palpation (GI): Soft to palpation, nontender, no guarding and not rigid : General: Yes no CVA tenderness Back/Spine/Pelvis: Back: no CVA tenderness Skin: Rashes: no rashes Wounds: no wounds Neuro: General: patient oriented x3, tone normal and no meningeal signs Gait exam (Neuro): Normal gait present Extrem: General: Yes normal to inspection Course Course Course Narrative: -1238--no leukocytosis. H&H stable, 37 bands on differential. Mild hyponatremia to 130. -C diff negative, patient positive for Shigella/Enterococcus invasive E coli in stool >> consult infectious disease recommended treating Shigella and admission if dehydrated >> plan to admit for further management Medications Administered Generic Name Dose Route Start Last Admin Trade Name Freq PRN Reason Stop Dose Admin Acetaminophen 650 mg 05/19/22 13:50 05/19/22 16:13 Acetaminophen 325 Mg Tablet PO 650 mg Q6H PRN Administration Pain, Mild (Pain Scale 1-3) Levofloxacin 500 mg in 100 mls @ 100 mls/hr 05/19/22 16:00 05/19/22 17:27 Levaquin IV Infused Q24H WALLACE Infusion Sodium Chloride 3 ml 05/19/22 16:00 05/19/22 15:21 0.9 % Sodium Chloride Flush 3 Ml Syringe IVFLUSH Not Given QSHIFT WALLACE Discontinued Medications Generic Name Dose Route Start Last Admin Trade Name Heena PRN Reason Stop Dose Admin Al Hydroxide/Mg Hydroxide 30 ml 05/19/22 09:39 05/19/22 10:45 Magnesium Hydrox/Alum Hydrox 30 Ml Oral.Susp PO 05/19/22 09:40 Not Given ONCE ONE Diphenhydramine HCl 25 mg 05/19/22 10:56 05/19/22 11:29 Diphenhydramine Hcl 50 Mg/Ml Vial IVPUSH 05/19/22 10:57 25 mg ONCE ONE Administration Sodium Chloride 1,000 mls @ 999 mls/hr 05/19/22 09:45 05/19/22 11:28 Ns IV 05/19/22 10:45 Infused .Q1H1M WALLACE Infusion Lactated Ringer's 1,000 mls @ 999 mls/hr 05/19/22 11:00 05/19/22 12:40 Lr IV 05/19/22 12:00 Infused .Q1H1M WALLACE Infusion Ceftriaxone Sodium 2 gm/ 50 mls @ 100 mls/hr 05/19/22 12:34 05/19/22 14:21 Sodium Chloride IV 05/19/22 13:03 Infused ONCE ONE Infusion Ketorolac Tromethamine 15 mg 05/19/22 09:39 05/19/22 10:35 Ketorolac Tromethamine 15 Mg/Ml Vial IVPUSH 05/19/22 09:40 15 mg ONCE ONE Administration Medical Decision Making Medical Decision Making MDM Narrative: 32-year-old male with past medical history of HIV noncompliant on antiviral medication presenting to the ED complaining of watery nonbloody diarrhea x3 days. On exam tachycardic likely from dehydration, appears uncomfortable, abdomen soft/nontender, patient with active explosive watery diarrhea during evaluation. No CVAT. Concern for gastroenteritis vs food poisoning vs metabolic abnormalities. Low suspicion for appendicitis/diverticulitis, colitis/toxic megacolon or UTI Plan: Labs, UA, IVF, pain control, re-evaluate Please refer to course for remaining clinical decision making, interpretation of labs/imaging results, and discussions with consultants and/or family members. Differential Diagnosis Differential Diagnoses: The differential diagnosis associated with the presentation includes As above Admission/Observation Consideration of admission/observation: Escalation of care including admission/observation considered Consult Healthcare Provider Management of the patient was discussed with: Quarter Supervisor Lab Data MDM Lab Attestation statement: I reviewed the patient's lab results. 05/19/22 09:51 05/19/22 09:51 Labs: Lab Results 05/19/22 05/19/22 05/19/22 Range/Units 08:48 08:48 09:51 WBC 6.4 (4.8-10.8) X10*3/uL RBC 4.50 L (4.60-5.80) X10*6/uL Hgb 13.6 L (14.0-18.0) g/dl Hct 38.3 L (42.0-52.0) % MCV 85.1 (80.0-98.0) fL MCH 30.2 (27.0-33.0) pg MCHC 35.5 (31.0-36.0) g/dl RDW 12.0 (11.0-16.0) % Plt Count 166 D (160-400) X10*3/uL MPV 9.7 (9.4-12.4) fL Immature Gran % (Auto) Cancelled Neut % (Auto) Cancelled Lymph % (Auto) Cancelled [place] % (Auto) Cancelled Eos % (Auto) Cancelled Baso % (Auto) Cancelled Lymph # (Auto) Cancelled [place] # (Auto) Cancelled Eos # (Auto) Cancelled Baso # (Auto) Cancelled Abs Immat Gran (auto) Cancelled Absolute Neuts (auto) Cancelled Absolute Nucleated RBC 0.000 (0.0-0.012) X10*3/uL Nucleated RBC % (auto) 0.0 (0.0-0.2) /100WBC Neutrophils % (Manual) 43 L (45-73) % Band Neutrophils % 37 H (3-5) % Lymphocytes % (Manual) 10 L (20-40) % Monocytes % (Manual) 10 (2-11) % Abs Neuts (Manual) 5.1 (2.0-8.3) X10*3/uL Lymphocytes # (Manual) 0.6 L (1.2-4.9) X10*3/uL Monocytes # (Manual) 0.6 (0.1-1.2) X10*3/uL Platelet Estimate NORMAL (NORMAL) Plt Morphology Comment NORMAL RBC Morphology NORMAL Sodium (135-145) mmol/L Potassium (3.3-5.1) mmol/L Chloride (96-108) mmol/L Carbon Dioxide (22-29) mmol/L Anion Gap (12-20) BUN (9-16) mg/dL Creatinine (0.5-1.4) mg/dL Estim Creat Clear Calc Estimated GFR Random Glucose (60-115) mg/dL Osmolality (281-305) mosm/kg Calcium (8.4-10.2) mg/dL Magnesium (1.6-2.6) mg/dL Total Bilirubin (0.0-1.0) mg/dL Direct Bilirubin (0.0-0.5) mg/dL AST (5-37) U/L ALT (0-40) U/L Alkaline Phosphatase (39-117) U/L Total Protein (6.5-8.0) g/dL Albumin (3.5-5.0) g/dL Lipase (8-78) U/L Urine Color Urine Appearance Urine pH (5.0-9.0) Ur Specific [place] (1.005-1.025) Urine Protein (Neg-Trace) mg/dL Urine Glucose (UA) (Negative) mg/dL Urine Ketones (Negative) mg/dL Urine Blood (Negative) Urine Nitrite (Negative) Ur Leukocyte Esterase (Negative) Urine Osmolality (373-1093) mosm/kg Ur Random Sodium mmol/L Ur Random Potassium mmol/L Ur Random Chloride mmol/L Urine Creatinine mg/dL Stl C. cayetanensis PCR (Not Detect.) Stool Rotavirus A PCR (Not Detect.) Stl Adenov F 40/41 PCR (Not Detect.) Stool Astrovirus (PCR) (Not Detect.) Stool Campylobacter PCR (Not Detect.) Stool Cryptosporidium PCR (Not Detect.) Stl Sh Tox Pr E STEC PCR (Not Detect.) Stool E coli O157 PCR (Not Detect.) Stl Enterotoxigenic E PCR (Not Detect.) Stool EPEC (PCR) (Not Detect.) Stool EAEC (PCR) (Not Detect.) Stl E. histolytica PCR (Not Detect.) Stool Giardia Lamblia PCR (Not Detect.) Stl P. shigelloides PCR (Not Detect.) Stool Salmonella PCR (Not Detect.) Stool Sapovirus (PCR) (Not Detect.) Stl Shigella/EIEC PCR (Not Detect.) St Y.enterocolitica PCR (Not Detect.) Stool Vibrio (PCR) (Not Detect.) Stl Vibrio cholerae PCR (Not Detect.) Stl Norovirus GI/GII PCR (Not Detect.) Urine Opiates Screen (Not Detect) Urine Fentanyl Screen (Not Detect) Ur Barbiturates Screen (Not Detect) Ur Phencyclidine Scrn (Not Detect) Ur Amphetamines Screen (Not Detect) U Benzodiazepines Scrn (Not Detect) Urine Cocaine Screen (Not Detect) U Marijuana (THC) Screen (Not Detect) C. difficile Tox B Gene (Negative) COVID-19 (JOSÉ MIGUEL) Negative (Negative) COVID-19 Clin Com See Note Influenza Type A (JONEL) Negative (Negative) Influenza Type B (JONEL) Negative (Negative) Influenza A & B Note See Note 05/19/22 05/19/22 05/19/22 Range/Units 09:51 09:51 09:52 WBC (4.8-10.8) X10*3/uL RBC (4.60-5.80) X10*6/uL Hgb (14.0-18.0) g/dl Hct (42.0-52.0) % MCV (80.0-98.0) fL MCH (27.0-33.0) pg MCHC (31.0-36.0) g/dl RDW (11.0-16.0) % Plt Count (160-400) X10*3/uL MPV (9.4-12.4) fL Immature Gran % (Auto) Neut % (Auto) Lymph % (Auto) [place] % (Auto) Eos % (Auto) Baso % (Auto) Lymph # (Auto) [place] # (Auto) Eos # (Auto) Baso # (Auto) Abs Immat Gran (auto) Absolute Neuts (auto) Absolute Nucleated RBC (0.0-0.012) X10*3/uL Nucleated RBC % (auto) (0.0-0.2) /100WBC Neutrophils % (Manual) (45-73) % Band Neutrophils % (3-5) % Lymphocytes % (Manual) (20-40) % Monocytes % (Manual) (2-11) % Abs Neuts (Manual) (2.0-8.3) X10*3/uL Lymphocytes # (Manual) (1.2-4.9) X10*3/uL Monocytes # (Manual) (0.1-1.2) X10*3/uL Platelet Estimate (NORMAL) Plt Morphology Comment RBC Morphology Sodium 130 L (135-145) mmol/L Potassium 3.5 D (3.3-5.1) mmol/L Chloride 95 L (96-108) mmol/L Carbon Dioxide 28 (22-29) mmol/L Anion Gap 11 L (12-20) BUN 13 (9-16) mg/dL Creatinine 0.74 (0.5-1.4) mg/dL Estim Creat Clear Calc 120.6 Estimated GFR > 60 Random Glucose 96 (60-115) mg/dL Osmolality 268 L (281-305) mosm/kg Calcium 8.1 L D (8.4-10.2) mg/dL Magnesium 1.6 (1.6-2.6) mg/dL Total Bilirubin 0.6 (0.0-1.0) mg/dL Direct Bilirubin < 0.2 (0.0-0.5) mg/dL AST 20 (5-37) U/L ALT 11 (0-40) U/L Alkaline Phosphatase 56 (39-117) U/L Total Protein 6.2 L (6.5-8.0) g/dL Albumin 3.2 L (3.5-5.0) g/dL Lipase 11 (8-78) U/L Urine Color Urine Appearance Urine pH (5.0-9.0) Ur Specific [place] (1.005-1.025) Urine Protein (Neg-Trace) mg/dL Urine Glucose (UA) (Negative) mg/dL Urine Ketones (Negative) mg/dL Urine Blood (Negative) Urine Nitrite (Negative) Ur Leukocyte Esterase (Negative) Urine Osmolality (373-1093) mosm/kg Ur Random Sodium mmol/L Ur Random Potassium mmol/L Ur Random Chloride mmol/L Urine Creatinine mg/dL Stl C. cayetanensis PCR (Not Detect.) Stool Rotavirus A PCR (Not Detect.) Stl Adenov F 40/41 PCR (Not Detect.) Stool Astrovirus (PCR) (Not Detect.) Stool Campylobacter PCR (Not Detect.) Stool Cryptosporidium PCR (Not Detect.) Stl Sh Tox Pr E STEC PCR (Not Detect.) Stool E coli O157 PCR (Not Detect.) Stl Enterotoxigenic E PCR (Not Detect.) Stool EPEC (PCR) (Not Detect.) Stool EAEC (PCR) (Not Detect.) Stl E. histolytica PCR (Not Detect.) Stool Giardia Lamblia PCR (Not Detect.) Stl P. shigelloides PCR (Not Detect.) Stool Salmonella PCR (Not Detect.) Stool Sapovirus (PCR) (Not Detect.) Stl Shigella/EIEC PCR (Not Detect.) St Y.enterocolitica PCR (Not Detect.) Stool Vibrio (PCR) (Not Detect.) Stl Vibrio cholerae PCR (Not Detect.) Stl Norovirus GI/GII PCR (Not Detect.) Urine Opiates Screen (Not Detect) Urine Fentanyl Screen (Not Detect) Ur Barbiturates Screen (Not Detect) Ur Phencyclidine Scrn (Not Detect) Ur Amphetamines Screen (Not Detect) U Benzodiazepines Scrn (Not Detect) Urine Cocaine Screen (Not Detect) U Marijuana (THC) Screen (Not Detect) C. difficile Tox B Gene NEGATIVE (Negative) COVID-19 (JOSÉ MIGUEL) (Negative) COVID-19 Clin Com Influenza Type A (JONEL) (Negative) Influenza Type B (JONEL) (Negative) Influenza A & B Note 05/19/22 05/19/22 05/19/22 Range/Units 09:52 13:07 13:08 WBC (4.8-10.8) X10*3/uL RBC (4.60-5.80) X10*6/uL Hgb (14.0-18.0) g/dl Hct (42.0-52.0) % MCV (80.0-98.0) fL MCH (27.0-33.0) pg MCHC (31.0-36.0) g/dl RDW (11.0-16.0) % Plt Count (160-400) X10*3/uL MPV (9.4-12.4) fL Immature Gran % (Auto) Neut % (Auto) Lymph % (Auto) [place] % (Auto) Eos % (Auto) Baso % (Auto) Lymph # (Auto) [place] # (Auto) Eos # (Auto) Baso # (Auto) Abs Immat Gran (auto) Absolute Neuts (auto) Absolute Nucleated RBC (0.0-0.012) X10*3/uL Nucleated RBC % (auto) (0.0-0.2) /100WBC Neutrophils % (Manual) (45-73) % Band Neutrophils % (3-5) % Lymphocytes % (Manual) (20-40) % Monocytes % (Manual) (2-11) % Abs Neuts (Manual) (2.0-8.3) X10*3/uL Lymphocytes # (Manual) (1.2-4.9) X10*3/uL Monocytes # (Manual) (0.1-1.2) X10*3/uL Platelet Estimate (NORMAL) Plt Morphology Comment RBC Morphology Sodium (135-145) mmol/L Potassium (3.3-5.1) mmol/L Chloride (96-108) mmol/L Carbon Dioxide (22-29) mmol/L Anion Gap (12-20) BUN (9-16) mg/dL Creatinine (0.5-1.4) mg/dL Estim Creat Clear Calc Estimated GFR Random Glucose (60-115) mg/dL Osmolality (281-305) mosm/kg Calcium (8.4-10.2) mg/dL Magnesium (1.6-2.6) mg/dL Total Bilirubin (0.0-1.0) mg/dL Direct Bilirubin (0.0-0.5) mg/dL AST (5-37) U/L ALT (0-40) U/L Alkaline Phosphatase (39-117) U/L Total Protein (6.5-8.0) g/dL Albumin (3.5-5.0) g/dL Lipase (8-78) U/L Urine Color Yellow Urine Appearance Clear Urine pH 6.5 (5.0-9.0) Ur Specific [place] <= 1.005 (1.005-1.025) Urine Protein Negative (Neg-Trace) mg/dL Urine Glucose (UA) Negative (Negative) mg/dL Urine Ketones Negative (Negative) mg/dL Urine Blood Negative (Negative) Urine Nitrite Negative (Negative) Ur Leukocyte Esterase Negative (Negative) Urine Osmolality (373-1093) mosm/kg Ur Random Sodium mmol/L Ur Random Potassium mmol/L Ur Random Chloride mmol/L Urine Creatinine mg/dL Stl C. cayetanensis PCR Not Detected (Not Detect.) Stool Rotavirus A PCR Not Detected (Not Detect.) Stl Adenov F 40/41 PCR Not Detected (Not Detect.) Stool Astrovirus (PCR) Not Detected (Not Detect.) Stool Campylobacter PCR Not Detected (Not Detect.) Stool Cryptosporidium PCR Not Detected (Not Detect.) Stl Sh Tox Pr E STEC PCR Not Detected (Not Detect.) Stool E coli O157 PCR Not applicable (Not Detect.) Stl Enterotoxigenic E PCR Not Detected (Not Detect.) Stool EPEC (PCR) Not Detected (Not Detect.) Stool EAEC (PCR) Not Detected (Not Detect.) Stl E. histolytica PCR Not Detected (Not Detect.) Stool Giardia Lamblia PCR Not Detected (Not Detect.) Stl P. shigelloides PCR Not Detected (Not Detect.) Stool Salmonella PCR Not Detected (Not Detect.) Stool Sapovirus (PCR) Not Detected (Not Detect.) Stl Shigella/EIEC PCR Detected A (Not Detect.) St Y.enterocolitica PCR Not Detected (Not Detect.) Stool Vibrio (PCR) Not Detected (Not Detect.) Stl Vibrio cholerae PCR Not Detected (Not Detect.) Stl Norovirus GI/GII PCR Not Detected (Not Detect.) Urine Opiates Screen (Not Detect) Urine Fentanyl Screen (Not Detect) Ur Barbiturates Screen (Not Detect) Ur Phencyclidine Scrn (Not Detect) Ur Amphetamines Screen (Not Detect) U Benzodiazepines Scrn (Not Detect) Urine Cocaine Screen (Not Detect) U Marijuana (THC) Screen (Not Detect) C. difficile Tox B Gene (Negative) COVID-19 (JOSÉ MIGUEL) (Negative) COVID-19 Clin Com Influenza Type A (JONEL) Negative (Negative) Influenza Type B (JONEL) Negative (Negative) Influenza A & B Note 05/19/22 05/19/22 05/19/22 Range/Units 13:09 13:09 13:09 WBC (4.8-10.8) X10*3/uL RBC (4.60-5.80) X10*6/uL Hgb (14.0-18.0) g/dl Hct (42.0-52.0) % MCV (80.0-98.0) fL MCH (27.0-33.0) pg MCHC (31.0-36.0) g/dl RDW (11.0-16.0) % Plt Count (160-400) X10*3/uL MPV (9.4-12.4) fL Immature Gran % (Auto) Neut % (Auto) Lymph % (Auto) [place] % (Auto) Eos % (Auto) Baso % (Auto) Lymph # (Auto) [place] # (Auto) Eos # (Auto) Baso # (Auto) Abs Immat Gran (auto) Absolute Neuts (auto) Absolute Nucleated RBC (0.0-0.012) X10*3/uL Nucleated RBC % (auto) (0.0-0.2) /100WBC Neutrophils % (Manual) (45-73) % Band Neutrophils % (3-5) % Lymphocytes % (Manual) (20-40) % Monocytes % (Manual) (2-11) % Abs Neuts (Manual) (2.0-8.3) X10*3/uL Lymphocytes # (Manual) (1.2-4.9) X10*3/uL Monocytes # (Manual) (0.1-1.2) X10*3/uL Platelet Estimate (NORMAL) Plt Morphology Comment RBC Morphology Sodium (135-145) mmol/L Potassium (3.3-5.1) mmol/L Chloride (96-108) mmol/L Carbon Dioxide (22-29) mmol/L Anion Gap (12-20) BUN (9-16) mg/dL Creatinine (0.5-1.4) mg/dL Estim Creat Clear Calc Estimated GFR Random Glucose (60-115) mg/dL Osmolality (281-305) mosm/kg Calcium (8.4-10.2) mg/dL Magnesium (1.6-2.6) mg/dL Total Bilirubin (0.0-1.0) mg/dL Direct Bilirubin (0.0-0.5) mg/dL AST (5-37) U/L ALT (0-40) U/L Alkaline Phosphatase (39-117) U/L Total Protein (6.5-8.0) g/dL Albumin (3.5-5.0) g/dL Lipase (8-78) U/L Urine Color Urine Appearance Urine pH (5.0-9.0) Ur Specific [place] (1.005-1.025) Urine Protein (Neg-Trace) mg/dL Urine Glucose (UA) (Negative) mg/dL Urine Ketones (Negative) mg/dL Urine Blood (Negative) Urine Nitrite (Negative) Ur Leukocyte Esterase (Negative) Urine Osmolality 179 L (373-1093) mosm/kg Ur Random Sodium < 20.0 mmol/L Ur Random Potassium 6.3 mmol/L Ur Random Chloride < 10.0 mmol/L Urine Creatinine 38.99 mg/dL Stl C. cayetanensis PCR (Not Detect.) Stool Rotavirus A PCR (Not Detect.) Stl Adenov F 40/41 PCR (Not Detect.) Stool Astrovirus (PCR) (Not Detect.) Stool Campylobacter PCR (Not Detect.) Stool Cryptosporidium PCR (Not Detect.) Stl Sh Tox Pr E STEC PCR (Not Detect.) Stool E coli O157 PCR (Not Detect.) Stl Enterotoxigenic E PCR (Not Detect.) Stool EPEC (PCR) (Not Detect.) Stool EAEC (PCR) (Not Detect.) Stl E. histolytica PCR (Not Detect.) Stool Giardia Lamblia PCR (Not Detect.) Stl P. shigelloides PCR (Not Detect.) Stool Salmonella PCR (Not Detect.) Stool Sapovirus (PCR) (Not Detect.) Stl Shigella/EIEC PCR (Not Detect.) St Y.enterocolitica PCR (Not Detect.) Stool Vibrio (PCR) (Not Detect.) Stl Vibrio cholerae PCR (Not Detect.) Stl Norovirus GI/GII PCR (Not Detect.) Urine Opiates Screen Not Detected (Not Detect) Urine Fentanyl Screen Not Detected (Not Detect) Ur Barbiturates Screen Not Detected (Not Detect) Ur Phencyclidine Scrn Not Detected (Not Detect) Ur Amphetamines Screen Not Detected (Not Detect) U Benzodiazepines Scrn Not Detected (Not Detect) Urine Cocaine Screen Not Detected (Not Detect) U Marijuana (THC) Screen Not Detected (Not Detect) C. difficile Tox B Gene (Negative) COVID-19 (JOSÉ MIGUEL) (Negative) COVID-19 Clin Com Influenza Type A (JONEL) (Negative) Influenza Type B (JONEL) (Negative) Influenza A & B Note Radiology Impression Discussion of test interpretation with radiology: I have reviewed the radiologist's reading. External Record Review External record reviewed: Prior outpatient labs and Prior outpatient radiology Prescription Management I considered prescription management with: Pain Medication, Antiviral and Antibiotic Chronic Conditions Patient?s care impacted by: Other Critical Care Time Critical Care Time Critical Care Time: Yes Total Critical Care Time: 40 Attestation: I have personally provided critical care time exclusive of time spent on separately billable procedures. Time includes review of lab data, radiology results, discussion with consultants, and monitoring for potential decompensation. Intervention performed as documented. Discharge Plan Discharge Clinical Impression: Shigella enteritis, Enteroinvasive Escherichia coli infection, Acute hyponatremia Patient Disposition: Admitted As Inpatient
--- NOTE | 2022-05-19 10:48 | PC.NURSE ---
patient refused HIV viral load labs. Ed Provider aware.
[2022-05-19 11:11] LABS: CDiff Gene PCR NEGATIVE (Negative)
[2022-05-19] MEDS: Lactated Ringers 1,000 ML 999 ML IV (11:28)
[2022-05-19] MEDS: diphenhydrAMINE HCL 50 MG/ML VIAL 25 MG IVPUSH (11:29)
[2022-05-19 12:18] LABS: Campylobacter Not Detected (Not Detect.); Plesiomonas shigelloides Not Detected (Not Detect.); Salmonella Not Detected (Not Detect.); Vibrio Not Detected (Not Detect.); Vibrio Cholerae Not Detected (Not Detect.); Yersinia enterocolitica Not Detected (Not Detect.)
[2022-05-19 12:19] LABS: E. coli EAEC Not Detected (Not Detect.); E. coli EPEC Not Detected (Not Detect.); E. coli ETEC Not Detected (Not Detect.); E. coli STEC Not Detected (Not Detect.)
[2022-05-19 12:20] LABS: Adenovirus F 40/41 Not Detected (Not Detect.); Astrovirus Not Detected (Not Detect.); Cryptosporidium Not Detected (Not Detect.); Cyclospora cayetanensis Not Detected (Not Detect.); Entamoeba histolytica Not Detected (Not Detect.); Giardia lamblia Not Detected (Not Detect.); Norovirus GI/GII Not Detected (Not Detect.); Rotavirus A Not Detected (Not Detect.); Sapovirus Not Detected (Not Detect.); Shigella sp./EIEC Detected (Not Detect.)
[2022-05-19] MEDS: cefTRIAXone sodium 2 GM in 0.9 % Sodium Chloride 50 ML IV (12:48)
[2022-05-19 12:59] LABS: Osmolality, Serum 268 mosm/kg (281-305)
[2022-05-19 13:02] VITALS: BP 111/64; PULSE 86; RESP 16; TEMP 37.1; O2SAT 100
--- NOTE | 2022-05-19 13:11 | MHC.IC ---
Patient positive for Shigella, placed on strict contact isolation with the use of gowns & gloves, hand washing with soap and water, bleach to clean patient equipment and room.
--- NOTE | 2022-05-19 13:17 | PHA.MEDREC ---
Pharmacy Consult ? Medication Reconciliation Pharmacy has completed the medication reconciliation.
--- NOTE | 2022-05-19 13:17 | PM.IMHP ---
History of Present Illness Date of Service: 05/19/22 Chief Complaint: Diarrhea 32 year old male with history HIV who has not taken meds in at least 3 months and comes in with 3 days of diarrhea that is profuse with associated abdominal pain and and some blood in the stool, he recent travelled up here from [facility] and denies any sic, contact. GI panel is postive for Shigella Review of Systems Review of Systems: Diarrhea abdominal pain [facility] Medical History HIV (human immunodeficiency virus infection) Social History Patient Tobacco Use Status: Current everyday Tobacco user Tobacco use type: Cigarette Cigarette Packs Per Day: 1 Cigarettes Per Day: 20.0 Years Smoked: 21 Smoked in Last 30 Days: Yes Patient Interested in Nicotine Replacement: Yes Patient Given Instructions on How to Stop Smoking: Yes Date Education Initiated: 05/19/22 Second Hand Smoke Exposure: No Advance Directives: No Advance Directives Information Provided: Yes Meds Allergies Allergy/AdvReac Type Severity Reaction Status Date / Time shellfish derived Allergy Swelling Verified 12/11/20 08:35 Active Medications: Current Medications Pharmacy Consult (Consult Rx Perform Med Rec) 1 each MISCELLANE ONCE STA Stop: 05/19/22 12:27 Home Medications Medication Instructions Recorded Confirmed Last Taken Type bictegravir 50 mg-emtricitabine 1 tab PO DAILY 05/19/22 05/19/22 Unknown History 200 mg-tenofovir alafenam 25 mg tablet (Biktarvy) bupropion HCl 150 mg tablet,12 hr 150 mg PO DAILY 05/19/22 05/19/22 Unknown History sustained-release trazodone 50 mg tablet 1 tab PO BEDTIME 05/19/22 05/19/22 Unknown History Physical Exam Vital Signs and Narrative: Vital Signs: Last Vital Signs Temp 98.8 F 05/19/22 13:02 Pulse 86 05/19/22 13:02 Resp 16 05/19/22 13:02 BP 111/64 05/19/22 13:02 Pulse Ox 100 05/19/22 13:02 O2 Del Method 05/19/22 13:02 BMI result Body Mass Index 19.2 Const: Other: Constitutional: Alert, in no distress, overweight. Mental Status: Oriented to person, place and time. Eyes: Pupils are equal, round and reactive to light. Ear, Nose and Throat: Oropharynx clear, mucous membranes moist. Ears and nose without deformities. Respiratory: Clear to auscultation. No wheezing, rales or rhonchi. Cardiovascular: S1 S2 regular. No murmurs, rubs or gallops. Gastrointestinal: Abdomen soft, non-tender, non-distended. Normal bowel sounds.? Neurologic: Cranial nerves II-XII grossly intact. No focal neurological deficits. Moves all extremities spontaneously.? Skin: No rashes or lesions.? Musculoskeletal: No cyanosis or clubbing. Psychiatric: Normal mood and affect? Results Labs 05/19/22 09:51 05/19/22 09:51 Labs: Laboratory Results - last 24 hr 05/19/22 05/19/22 05/19/22 08:48 08:48 09:51 MCV 85.1 MCH 30.2 MCHC 35.5 RDW 12.0 Plt Count 166 D MPV 9.7 Immature Gran % (Auto) Cancelled Neut % (Auto) Cancelled Lymph % (Auto) Cancelled Graves % (Auto) Cancelled Eos % (Auto) Cancelled Baso % (Auto) Cancelled Lymph # (Auto) Cancelled Graves # (Auto) Cancelled Eos # (Auto) Cancelled Baso # (Auto) Cancelled Abs Immat Gran (auto) Cancelled Absolute Neuts (auto) Cancelled Absolute Nucleated RBC 0.000 Nucleated RBC % (auto) 0.0 Neutrophils % (Manual) 43 L Band Neutrophils % 37 H Lymphocytes % (Manual) 10 L Monocytes % (Manual) 10 Abs Neuts (Manual) 5.1 Lymphocytes # (Manual) 0.6 L Monocytes # (Manual) 0.6 Platelet Estimate NORMAL Plt Morphology Comment NORMAL RBC Morphology NORMAL Anion Gap Estim Creat Clear Calc Estimated GFR Random Glucose Osmolality Calcium Magnesium Total Bilirubin Direct Bilirubin AST ALT Alkaline Phosphatase Total Protein Albumin Lipase Stl C. cayetanensis PCR Stool Rotavirus A PCR Stl Adenov F 40/41 PCR Stool Astrovirus (PCR) Stool Campylobacter PCR Stool Cryptosporidium PCR Stl Sh Tox Pr E STEC PCR Stool E coli O157 PCR Stl Enterotoxigenic E PCR Stool EPEC (PCR) Stool EAEC (PCR) Stl E. histolytica PCR Stool Giardia Lamblia PCR Stl P. shigelloides PCR Stool Salmonella PCR Stool Sapovirus (PCR) Stl Shigella/EIEC PCR St Y.enterocolitica PCR Stool Vibrio (PCR) Stl Vibrio cholerae PCR Stl Norovirus GI/GII PCR C. difficile Tox B Gene COVID-19 (JOSÉ MIGUEL) Negative COVID-19 Clin Com See Note Influenza Type A (JONEL) Negative Influenza Type B (JONEL) Negative Influenza A & B Note See Note 05/19/22 05/19/22 05/19/22 09:51 09:51 09:52 MCV MCH MCHC RDW Plt Count MPV Immature Gran % (Auto) Neut % (Auto) Lymph % (Auto) Graves % (Auto) Eos % (Auto) Baso % (Auto) Lymph # (Auto) Graves # (Auto) Eos # (Auto) Baso # (Auto) Abs Immat Gran (auto) Absolute Neuts (auto) Absolute Nucleated RBC Nucleated RBC % (auto) Neutrophils % (Manual) Band Neutrophils % Lymphocytes % (Manual) Monocytes % (Manual) Abs Neuts (Manual) Lymphocytes # (Manual) Monocytes # (Manual) Platelet Estimate Plt Morphology Comment RBC Morphology Anion Gap 11 L Estim Creat Clear Calc 120.6 Estimated GFR > 60 Random Glucose 96 Osmolality 268 L Calcium 8.1 L D Magnesium 1.6 Total Bilirubin 0.6 Direct Bilirubin < 0.2 AST 20 ALT 11 Alkaline Phosphatase 56 Total Protein 6.2 L Albumin 3.2 L Lipase 11 Stl C. cayetanensis PCR Stool Rotavirus A PCR Stl Adenov F 40/41 PCR Stool Astrovirus (PCR) Stool Campylobacter PCR Stool Cryptosporidium PCR Stl Sh Tox Pr E STEC PCR Stool E coli O157 PCR Stl Enterotoxigenic E PCR Stool EPEC (PCR) Stool EAEC (PCR) Stl E. histolytica PCR Stool Giardia Lamblia PCR Stl P. shigelloides PCR Stool Salmonella PCR Stool Sapovirus (PCR) Stl Shigella/EIEC PCR St Y.enterocolitica PCR Stool Vibrio (PCR) Stl Vibrio cholerae PCR Stl Norovirus GI/GII PCR C. difficile Tox B Gene NEGATIVE COVID-19 (JOSÉ MIGUEL) COVID-19 Clin Com Influenza Type A (JONEL) Influenza Type B (JONEL) Influenza A & B Note 05/19/22 09:52 MCV MCH MCHC RDW Plt Count MPV Immature Gran % (Auto) Neut % (Auto) Lymph % (Auto) Graves % (Auto) Eos % (Auto) Baso % (Auto) Lymph # (Auto) Graves # (Auto) Eos # (Auto) Baso # (Auto) Abs Immat Gran (auto) Absolute Neuts (auto) Absolute Nucleated RBC Nucleated RBC % (auto) Neutrophils % (Manual) Band Neutrophils % Lymphocytes % (Manual) Monocytes % (Manual) Abs Neuts (Manual) Lymphocytes # (Manual) Monocytes # (Manual) Platelet Estimate Plt Morphology Comment RBC Morphology Anion Gap Estim Creat Clear Calc Estimated GFR Random Glucose Osmolality Calcium Magnesium Total Bilirubin Direct Bilirubin AST ALT Alkaline Phosphatase Total Protein Albumin Lipase Stl C. cayetanensis PCR Not Detected Stool Rotavirus A PCR Not Detected Stl Adenov F 40/41 PCR Not Detected Stool Astrovirus (PCR) Not Detected Stool Campylobacter PCR Not Detected Stool Cryptosporidium PCR Not Detected Stl Sh Tox Pr E STEC PCR Not Detected Stool E coli O157 PCR Not applicable Stl Enterotoxigenic E PCR Not Detected Stool EPEC (PCR) Not Detected Stool EAEC (PCR) Not Detected Stl E. histolytica PCR Not Detected Stool Giardia Lamblia PCR Not Detected Stl P. shigelloides PCR Not Detected Stool Salmonella PCR Not Detected Stool Sapovirus (PCR) Not Detected Stl Shigella/EIEC PCR Detected A St Y.enterocolitica PCR Not Detected Stool Vibrio (PCR) Not Detected Stl Vibrio cholerae PCR Not Detected Stl Norovirus GI/GII PCR Not Detected C. difficile Tox B Gene COVID-19 (JOSÉ MIGUEL) COVID-19 Clin Com Influenza Type A (JONEL) Influenza Type B (JONEL) Influenza A & B Note Assessment and Plan (1) Shigella enteritis: Status: Acute (2) HIV (human immunodeficiency virus infection): Status: Acute Plan 32/m with HIV not on meds here with shigela diarreha, plan: culture pending, will treat with Levaquin, hydrate mild hyponatremia--should improve with hydration HIV not on meds and will need to be followed up on on outpatient basis low risk for dvt full code observation Time Spent With Patient Time: Total time managing care of this patient today ____ minutes. Quality Stroke Does the patient have a stroke diagnosis?: No VTE Prior VTE?: No VTE Risk Level:: Medical - low VTE Device Contraindication: Treatment Not Indicated VTE Drug Contraindication: Treatment Not Indicated
[2022-05-19 13:21] LABS: Appearance Urine Clear; Color Urine Yellow; Glucose Urine UA Negative (Negative); Leukocyte Esterase Urine Negative (Negative); Nitrite Urine Negative (Negative); PH 6.5 (5.0-9.0); Specific Gravity - Urine <= 1.005 (1.005-1.025); Urine Blood Negative (Negative); Urine Ketones Negative (Negative); Urine Protein Negative (Neg-Trace)
[2022-05-19 13:30] LABS: Amphetamine Screen Urine Not Detected (Not Detect); Barbiturates, Urine Not Detected (Not Detect); Benzodiazepines Screen Urine Not Detected (Not Detect); Cannabinoid Screen Urine Not Detected (Not Detect); Cocaine Screen Urine Not Detected (Not Detect); Creatinine Urine 38.99 mg/dL; Fentanyl, urine Not Detected (Not Detect); Opiate Screen Urine Not Detected (Not Detect); Phencyclidine Screen Urine Not Detected (Not Detect); Potassium Urine Random 6.3 mmol/L; Sodium Urine Random < 20.0 mmol/L
[2022-05-19 13:47] LABS: IDNOW Serial# 55D5AD1C; Influenza A Negative (Negative); Influenza B2 Negative (Negative)
[2022-05-19 13:55] LABS: Osmolality Urine 179 mosm/kg (373-1093)
--- NOTE | 2022-05-19 15:12 | PC.NURSE ---
Patient transferred over from main ED continent of stool up to commode, patient sleeping wants room dark is sleeping no distress noted will CTM
[2022-05-19 15:59] VITALS: BP 128/69; PULSE 100; RESP 18; TEMP 38.4; O2SAT 98
[2022-05-19 16:03] LABS: Chloride Urine Random < 10.0 mmol/L
[2022-05-19] MEDS: Acetaminophen 325 MG TABLET 650 MG PO (16:13)
[2022-05-19] MEDS: levoFLOXacin/D5W 500 MG/100 ML PIGGYBACK 100 MG IV (16:14)
[2022-05-19 18:30] VITALS: TEMP 38
--- NOTE | 2022-05-19 19:04 | PC.NURSE ---
Patient tolerated PO food and fluids
[2022-05-19 21:20] VITALS: BP 120/61; PULSE 74; RESP 18; TEMP 36.7; O2SAT 98
[2022-05-19 21:39] VITALS: BMI 19.2
[2022-05-19] MEDS: 0.9 % Sodium Chloride Flush 3 ML SYRINGE IVFLUSH (21:42)
[2022-05-19] MEDS: OLANZapine 5 MG TABLET PO (22:16)
[2022-05-19 23:47] VITALS: BP 113/58; PULSE 71; RESP 18; TEMP 36.7; O2SAT 100
[2022-05-20 03:55] VITALS: BP 110/60; PULSE 75; RESP 17; TEMP 36.2; O2SAT 95
[2022-05-20 08:12] VITALS: BP 104/62; PULSE 66; RESP 17; TEMP 36.8; O2SAT 100
[2022-05-20] MEDS: Nicotine 14 MG PATCH.TD24 TRANSDERMA (09:24)
[2022-05-20] MEDS: buPROPion HCl XL 150 MG TAB.ER.24H PO (09:24)
[2022-05-20] MEDS: Lactated Ringers 1,000 ML 125 ML IVCONT ×3 (09:25→19:49)
[2022-05-20] MEDS: 0.9 % Sodium Chloride Flush 3 ML SYRINGE IVFLUSH ×2 (09:25→17:13)
--- NOTE | 2022-05-20 09:44 | HO.PM.IMPN ---
Subjective Subjective Date of Service: 05/20/22 Review of Systems bloody diarrhea abdominal pain Physical Exam Vital Signs: Vital Signs: Last Vital Signs Temp 98.2 F 05/20/22 08:12 Pulse 66 05/20/22 08:12 Resp 17 05/20/22 08:12 BP 104/62 05/20/22 08:12 Pulse Ox 100 05/20/22 08:12 O2 Del Method 05/20/22 08:12 O2 Flow Rate 2 05/20/22 03:55 BMI result Body Mass Index 19.2 Const: Other: General: AO X 3, no acute distress Resp: CTA bilateral CVS: S1,S2,RRR GI: +BS, Tender, no distention Skin: No rash Neuro: motor grossly intact Psych: appropriate affect Objective Data Active Medications Acetaminophen (Acetaminophen 325 Mg Tablet) 650 mg PO Q6H PRN PRN Reason: Pain, Mild (Pain Scale 1-3) Last Admin: 05/19/22 16:13 Dose: 650 mg Documented By: MIHAI Bupropion HCl (Bupropion Hcl Xl 150 Mg Tab.Er.24h) 150 mg PO DAILY [facility] Last Admin: 05/20/22 09:24 Dose: 150 mg Documented By: JORGE Lactated Ringer's (Lr) 1,000 mls @ 125 mls/hr IVCONT .Q8H [facility] Last Admin: 05/20/22 09:25 Dose: 125 mls/hr Documented By: JORGE Levofloxacin (Levaquin) 500 mg in 100 mls @ 100 mls/hr IV Q24H [facility] Last Infusion: 05/19/22 17:27 Dose: 0 mls/hr Documented By: MIHAI Morphine Sulfate (Morphine Sulfate 4 Mg/Ml Cartridge) 2 mg IVPUSH Q4H PRN; Protocol PRN Reason: Pain, Severe (Pain Scale 7-10) Nicotine (Nicotine 14 Mg Patch.Td24) 14 mg TRANSDERMA DAILY [facility] Last Admin: 05/20/22 09:24 Dose: 14 mg Documented By: JORGE Ondansetron HCl (Ondansetron Hcl 4 Mg/2 Ml Vial) 4 mg IVPUSH Q8H PRN PRN Reason: Nausea and Vomiting Sodium Chloride (0.9 % Sodium Chloride Flush 3 Ml Syringe) 3 ml IVFLUSH QSHIFT [facility] Last Admin: 05/20/22 09:25 Dose: 3 ml Documented By: JORGE Trazodone HCl (Trazodone Hcl 50 Mg Tablet) 50 mg PO BEDTIME [facility] Last Admin: 05/19/22 22:17 Dose: Not Given Documented By: EDUARDO Non-Admin Reason: Patient Refused Labs 05/19/22 09:51 05/19/22 09:51 Labs: Laboratory Results - last 24 hr 05/19/22 05/19/22 05/19/22 09:51 09:51 09:51 MCV 85.1 MCH 30.2 MCHC 35.5 RDW 12.0 Plt Count 166 D MPV 9.7 Immature Gran % (Auto) Cancelled Neut % (Auto) Cancelled Lymph % (Auto) Cancelled Mckean % (Auto) Cancelled Eos % (Auto) Cancelled Baso % (Auto) Cancelled Lymph # (Auto) Cancelled Mckean # (Auto) Cancelled Eos # (Auto) Cancelled Baso # (Auto) Cancelled Abs Immat Gran (auto) Cancelled Absolute Neuts (auto) Cancelled Absolute Nucleated RBC 0.000 Nucleated RBC % (auto) 0.0 Neutrophils % (Manual) 43 L Band Neutrophils % 37 H Lymphocytes % (Manual) 10 L Monocytes % (Manual) 10 Abs Neuts (Manual) 5.1 Lymphocytes # (Manual) 0.6 L Monocytes # (Manual) 0.6 Platelet Estimate NORMAL Plt Morphology Comment NORMAL RBC Morphology NORMAL Anion Gap 11 L Estim Creat Clear Calc 120.6 Estimated GFR > 60 Random Glucose 96 Osmolality 268 L Calcium 8.1 L D Magnesium 1.6 Total Bilirubin 0.6 Direct Bilirubin < 0.2 AST 20 ALT 11 Alkaline Phosphatase 56 Total Protein 6.2 L Albumin 3.2 L Lipase 11 Urine Color Urine Appearance Urine pH Ur Specific [address] Urine Protein Urine Glucose (UA) Urine Ketones Urine Blood Urine Nitrite Ur Leukocyte Esterase Urine Osmolality Ur Random Sodium Ur Random Potassium Ur Random Chloride Urine Creatinine Stl C. cayetanensis PCR Stool Rotavirus A PCR Stl Adenov F 40 PCR Stool Astrovirus (PCR) Stool Campylobacter PCR Stool Cryptosporidium PCR Stl Sh Tox Pr E STEC PCR Stool E coli O157 PCR Stl Enterotoxigenic E PCR Stool EPEC (PCR) Stool EAEC (PCR) Stl E. histolytica PCR Stool Giardia Lamblia PCR Stl P. shigelloides PCR Stool Salmonella PCR Stool Sapovirus (PCR) Stl Shigella/EIEC PCR St Y.enterocolitica PCR Stool Vibrio (PCR) Stl Vibrio cholerae PCR Stl Norovirus GI/GII PCR Urine Opiates Screen Urine Fentanyl Screen Ur Barbiturates Screen Ur Phencyclidine Scrn Ur Amphetamines Screen U Benzodiazepines Scrn Urine Cocaine Screen U Marijuana (THC) Screen C. difficile Tox B Gene Influenza Type A (JONEL) Influenza Type B (JONEL) Influenza A & B Note 05/19/22 05/19/22 05/19/22 09:52 09:52 13:07 MCV MCH MCHC RDW Plt Count MPV Immature Gran % (Auto) Neut % (Auto) Lymph % (Auto) Mckean % (Auto) Eos % (Auto) Baso % (Auto) Lymph # (Auto) Mckean # (Auto) Eos # (Auto) Baso # (Auto) Abs Immat Gran (auto) Absolute Neuts (auto) Absolute Nucleated RBC Nucleated RBC % (auto) Neutrophils % (Manual) Band Neutrophils % Lymphocytes % (Manual) Monocytes % (Manual) Abs Neuts (Manual) Lymphocytes # (Manual) Monocytes # (Manual) Platelet Estimate Plt Morphology Comment RBC Morphology Anion Gap Estim Creat Clear Calc Estimated GFR Random Glucose Osmolality Calcium Magnesium Total Bilirubin Direct Bilirubin AST ALT Alkaline Phosphatase Total Protein Albumin Lipase Urine Color Urine Appearance Urine pH Ur Specific [address] Urine Protein Urine Glucose (UA) Urine Ketones Urine Blood Urine Nitrite Ur Leukocyte Esterase Urine Osmolality Ur Random Sodium Ur Random Potassium Ur Random Chloride Urine Creatinine Stl C. cayetanensis PCR Not Detected Stool Rotavirus A PCR Not Detected Stl Adenov F 40/41 PCR Not Detected Stool Astrovirus (PCR) Not Detected Stool Campylobacter PCR Not Detected Stool Cryptosporidium PCR Not Detected Stl Sh Tox Pr E STEC PCR Not Detected Stool E coli O157 PCR Not applicable Stl Enterotoxigenic E PCR Not Detected Stool EPEC (PCR) Not Detected Stool EAEC (PCR) Not Detected Stl E. histolytica PCR Not Detected Stool Giardia Lamblia PCR Not Detected Stl P. shigelloides PCR Not Detected Stool Salmonella PCR Not Detected Stool Sapovirus (PCR) Not Detected Stl Shigella/EIEC PCR Detected A St Y.enterocolitica PCR Not Detected Stool Vibrio (PCR) Not Detected Stl Vibrio cholerae PCR Not Detected Stl Norovirus GI/GII PCR Not Detected Urine Opiates Screen Urine Fentanyl Screen Ur Barbiturates Screen Ur Phencyclidine Scrn Ur Amphetamines Screen U Benzodiazepines Scrn Urine Cocaine Screen U Marijuana (THC) Screen C. difficile Tox B Gene NEGATIVE Influenza Type A (JONEL) Negative Influenza Type B (JONEL) Negative Influenza A & B Note 05/19/22 05/19/22 05/19/22 13:08 13:09 13:09 MCV MCH MCHC RDW Plt Count MPV Immature Gran % (Auto) Neut % (Auto) Lymph % (Auto) Mckean % (Auto) Eos % (Auto) Baso % (Auto) Lymph # (Auto) Mckean # (Auto) Eos # (Auto) Baso # (Auto) Abs Immat Gran (auto) Absolute Neuts (auto) Absolute Nucleated RBC Nucleated RBC % (auto) Neutrophils % (Manual) Band Neutrophils % Lymphocytes % (Manual) Monocytes % (Manual) Abs Neuts (Manual) Lymphocytes # (Manual) Monocytes # (Manual) Platelet Estimate Plt Morphology Comment RBC Morphology Anion Gap Estim Creat Clear Calc Estimated GFR Random Glucose Osmolality Calcium Magnesium Total Bilirubin Direct Bilirubin AST ALT Alkaline Phosphatase Total Protein Albumin Lipase Urine Color Yellow Urine Appearance Clear Urine pH 6.[address] <= 1.005 Urine Protein Negative Urine Glucose (UA) Negative Urine Ketones Negative Urine Blood Negative Urine Nitrite Negative Ur Leukocyte Esterase Negative Urine Osmolality 179 L Ur Random Sodium < 20.0 Ur Random Potassium 6.3 Ur Random Chloride < 10.0 Urine Creatinine 38.99 Stl C. cayetanensis PCR Stool Rotavirus A PCR Stl Adenov F 40/41 PCR Stool Astrovirus (PCR) Stool Campylobacter PCR Stool Cryptosporidium PCR Stl Sh Tox Pr E STEC PCR Stool E coli O157 PCR Stl Enterotoxigenic E PCR Stool EPEC (PCR) Stool EAEC (PCR) Stl E. histolytica PCR Stool Giardia Lamblia PCR Stl P. shigelloides PCR Stool Salmonella PCR Stool Sapovirus (PCR) Stl Shigella/EIEC PCR St Y.enterocolitica PCR Stool Vibrio (PCR) Stl Vibrio cholerae PCR Stl Norovirus GI/GII PCR Urine Opiates Screen Urine Fentanyl Screen Ur Barbiturates Screen Ur Phencyclidine Scrn Ur Amphetamines Screen U Benzodiazepines Scrn Urine Cocaine Screen U Marijuana (THC) Screen C. difficile Tox B Gene Influenza Type A (JONEL) Influenza Type B (JONEL) Influenza A & B Note 05/19/22 13:09 MCV MCH MCHC RDW Plt Count MPV Immature Gran % (Auto) Neut % (Auto) Lymph % (Auto) Mckean % (Auto) Eos % (Auto) Baso % (Auto) Lymph # (Auto) Mckean # (Auto) Eos # (Auto) Baso # (Auto) Abs Immat Gran (auto) Absolute Neuts (auto) Absolute Nucleated RBC Nucleated RBC % (auto) Neutrophils % (Manual) Band Neutrophils % Lymphocytes % (Manual) Monocytes % (Manual) Abs Neuts (Manual) Lymphocytes # (Manual) Monocytes # (Manual) Platelet Estimate Plt Morphology Comment RBC Morphology Anion Gap Estim Creat Clear Calc Estimated GFR Random Glucose Osmolality Calcium Magnesium Total Bilirubin Direct Bilirubin AST ALT Alkaline Phosphatase Total Protein Albumin Lipase Urine Color Urine Appearance Urine pH Ur Specific [address] Urine Protein Urine Glucose (UA) Urine Ketones Urine Blood Urine Nitrite Ur Leukocyte Esterase Urine Osmolality Ur Random Sodium Ur Random Potassium Ur Random Chloride Urine Creatinine Stl C. cayetanensis PCR Stool Rotavirus A PCR Stl Adenov F 40/41 PCR Stool Astrovirus (PCR) Stool Campylobacter PCR Stool Cryptosporidium PCR Stl Sh Tox Pr E STEC PCR Stool E coli O157 PCR Stl Enterotoxigenic E PCR Stool EPEC (PCR) Stool EAEC (PCR) Stl E. histolytica PCR Stool Giardia Lamblia PCR Stl P. shigelloides PCR Stool Salmonella PCR Stool Sapovirus (PCR) Stl Shigella/EIEC PCR St Y.enterocolitica PCR Stool Vibrio (PCR) Stl Vibrio cholerae PCR Stl Norovirus GI/GII PCR Urine Opiates Screen Not Detected Urine Fentanyl Screen Not Detected Ur Barbiturates Screen Not Detected Ur Phencyclidine Scrn Not Detected Ur Amphetamines Screen Not Detected U Benzodiazepines Scrn Not Detected Urine Cocaine Screen Not Detected U Marijuana (THC) Screen Not Detected C. difficile Tox B Gene Influenza Type A (JONEL) Influenza Type B (JONEL) Influenza A & B Note Assessment and Plan (1) HIV (human immunodeficiency virus infection): Status: Acute (2) Shigella enteritis: Status: Acute (3) Enteroinvasive Escherichia coli infection: Status: Acute Plan 32/m with HIV not on meds here with shigela diarreha, plan: culture pending, Levaquin, hydrate and follow culture mild hyponatremia--should improve with hydration HIV not on meds and will need to be followed up on on outpatient basis low risk for dvt full code observation Time Spent With Patient Time: Total time managing care of this patient today ____ minutes. Quality Stroke Does the patient have a stroke diagnosis?: No VTE Prior VTE?: No VTE Risk Level:: Medical - low VTE Device Contraindication: Treatment Not Indicated VTE Drug Contraindication: Treatment Not Indicated
[2022-05-20 12:00] VITALS: BP 115/63; PULSE 80; RESP 17; TEMP 36.7; O2SAT 99
--- NOTE | 2022-05-20 14:58 | MHC.CM.PN ---
PT REPORTS HE JUST MOVED BACK FROM [place] AND WILL BE LIVING WITH HIS MOTHER IN [place] HE DENIES BEING CONNECTED TO ANY SERVICES, USES NO DME AND DOES NOT HAVE A PCP HE PLANS TO GO [facility] AND HOPES TO RECONNECT WITH HIS PREVIOUS PCP HE IS COVID [place] [employer] HCP DCP: HOME NO SERVICES VIA FAMILY TRANSPORT MOTHER: CHELA BOCANEGRA [phone]
[2022-05-20 15:41] VITALS: BP 108/62; PULSE 71; RESP 17; TEMP 36.8; O2SAT 100
[2022-05-20] MEDS: levoFLOXacin/D5W 500 MG/100 ML PIGGYBACK 100 MG IV (17:13)
[2022-05-20 19:29] VITALS: BP 121/61; PULSE 79; RESP 15; TEMP 37.5; O2SAT 99
[2022-05-20] MEDS: traZODone HCL 50 MG TABLET PO (20:02)
[2022-05-20 23:22] VITALS: BP 94/53; PULSE 62; RESP 18; TEMP 36.1; O2SAT 99
[2022-05-21] MEDS: Lactated Ringers 1,000 ML 125 ML IVCONT (03:10)
[2022-05-21 07:58] VITALS: BP 106/60; PULSE 75; RESP 18; TEMP 36.7; O2SAT 100
[2022-05-21] MEDS: Nicotine 14 MG PATCH.TD24 TRANSDERMA (09:05)
[2022-05-21] MEDS: buPROPion HCl XL 150 MG TAB.ER.24H PO (09:05)
--- NOTE | 2022-05-21 09:49 | PM.DS ---
DS: Providers Provider Date of Service: 05/21/22 Date of admission: 05/19/22 13:50 Primary care physician: Unknown Physician DS: Diagnosis Discharge Diagnosis (1) HIV (human immunodeficiency virus infection): Status: Acute (2) Shigella enteritis: Status: Acute (3) Enteroinvasive Escherichia coli infection: Status: Acute DS: Summary Hospital Course Hospital Course: Chief Complaint: Diarrhea 32 year old male with history HIV who has not taken meds in at least 3 months and comes in with 3 days of diarrhea that is profuse with associated abdominal pain and and some blood in the stool, he recent travelled up here from [facility] and denies any sic, contact. GI panel is postive for Shigella Hospital course: Patient was admitted for treatment of Shigellosis, initially given Ceftriaxone and then continued with Levaquin and by second day of hospitalization, diarrhea has resolved and he's tolerating diet and will be discharged wti 4 more days of Cipro 500 mg bid for total of 7 days of Abx given history of HIV, usual course is 3 days of Abx. He advised to follow up with [facility] to be restarted on HiV meds, he hasn't taking these in at least 3 months. Time Spent with Patient Time attestation: Total time managing care of this patient today ____ minutes. Discharge coordination time: Greater than 30 minutes Quality: Safe Use of Opioids Does Pt have an Active Cancer Diagnosis on the Problem List?: No Quality: Stroke Does the patient have a stroke diagnosis?: No Physical Exam Vital Signs: Vital Signs: Last Vital Signs Temp 98.0 F 05/21/22 07:58 Pulse 75 05/21/22 07:58 Resp 18 05/21/22 07:58 BP 106/60 05/21/22 07:58 Pulse Ox 100 05/21/22 07:58 O2 Del Method 05/21/22 07:58 O2 Flow Rate 2 05/20/22 03:55 BMI result Body Mass Index 19.2 Const: Other: General: AO X 3, no acute distress Resp: CTA bilateral CVS: S1,S2,RRR GI: +BS, NT, no distention Skin: No rash Neuro: motor grossly intact Psych: appropriate affect Discharge Plan Discharge Anticipated Discharge Date/Time: 05/21/22 09:41 Patient Disposition: Home, Self-Care Discharge Diagnosis: Shigellosis Referrals: Physician,Unknown J [Primary Care Provider] - 1 Week Discharge Medications: New ciprofloxacin HCl [Cipro] 500 mg tablet 500 mg PO BID Qty: 8 0RF Continued bupropion HCl 150 mg tablet sustained-release 12 hr 150 mg PO DAILY trazodone 50 mg tablet 1 tab PO BEDTIME Biktarvy 50-200-25 mg tablet 1 tab PO DAILY Discharge Orders: Discharge Order (Routine); Ordered 05/21/22 Ordered By: Dino Jett Diet: Advance to usual diet Activity on Discharge: As tolerated Stand Alone Forms: Patient Portal Discharge page Care Plan Goals: full recovery from Shigellosis Health Concerns: Shigellosis HIV Plan of Treatment: Take Ciprofloxacin as recommended and follow up with your Doctor in a week Please be aware that Shegella can be sexually, especially anal intercourse should be avoided until fully completed treatment and all symptoms resolved Follow up with the Health center to be restarted on HIV medication Assessment: see above
[2022-05-22 15:23] LABS: Absolute CD3 Count 645 cells/uL (840-3060); Absolute CD4 Count 146 cells/uL (490-1740); Absolute CD8 Count 473 cells/uL (180-1170); Absolute Lymphocytes 753 cells/uL (850-3900); CD4 CD8 Ratio 0.31 (0.86-5.00); Percent CD3 Cells 86 % (57-85); Percent CD4 Cells 19 % (30-61); Percent CD8 Cells 63 % (12-42)
== END 2022-05-21 10:52 | disposition home or self-care (01) ==
LOC: HO.ED 12:46 → HO.EDOVER 14:00 → HO.S3 19:29
PROVIDERS: Physician Assistant; Admitting Provider Internal Medicine; Emergency Provider Emergency Medicine Emergency Medical Services; Visit Provider Internal Medicine
DX: A03.9 Shigellosis, unspecified (principal); B20 Human immunodeficiency virus [HIV] disease; A04.2 Enteroinvasive Escherichia coli infection; E87.1 Hypo-osmolality and hyponatremia; Z20.822 Contact with and (suspected) exposure to COVID-19; F17.210 Nicotine dependence, cigarettes, uncomplicated; Z91.14 Patient's other noncompliance with medication regimen
CPT/HCPCS: 36415; 80048; 80076; 80307; 81003; 82436; 83690; 83735; 83930; 83935; 84133; 84300; 85007; 85025; 85027; 86359; 86360; 87493; 87502; 87507; 87635; 96361; 96365; 96366; 96367; 96375; 99221; 99283; 99285; J0696; J1200; J1885; J1956

== ENCOUNTER 2023-05-19 11:22 | Emergency (ER) | payer MEDICAID, SELFPAY ==
[2023-05-19 11:49] VITALS: BP 138/78; PULSE 114; RESP 20; TEMP 37.4; O2SAT 97; BMI 23.5
--- NOTE | 2023-05-19 11:49 | ED_ITS ---
HPI - General Adult General Chief complaint: Upper Respiratory Symptoms Stated complaint: chest pain body aches Time Seen by Provider: 05/19/23 14:06 Source: patient Mode of arrival: ambulatory Limitations: no limitations History of Present Illness HPI narrative: 33-year-old male with pmhx significant for HIV presents to the ED today for evaluation of I feel like I'm dying . He reports 3 days of cough, nasal c ongestion, body aches, headache and subjective fevers. Cough is not productive of sputum. Has not been taking any OTC medications at home for this. Denies known sick contacts. Denies recent tick or insect bites. Related Data Home Medications Medication Instructions Recorded Confirmed bictegravir 50 mg-emtricitabine 1 tab PO DAILY 05/19/22 05/19/22 200 mg-tenofovir alafenam 25 mg tablet (Biktarvy) bupropion HCl 150 mg tablet,12 hr 150 mg PO DAILY 05/19/22 05/19/22 sustained-release trazodone 50 mg tablet 1 tab PO BEDTIME 05/19/22 05/19/22 Previous Rx's Medication Instructions Recorded ciprofloxacin HCl 500 mg tablet 500 mg PO BID #8 tabs 05/21/22 (Cipro) oseltamivir 75 mg capsule (Tamiflu) 75 mg PO BID 5 days #10 caps 05/19/23 Allergies Allergy/AdvReac Type Severity Reaction Status Date / Time shellfish derived Allergy Swelling Verified 05/19/23 11:52 Review of Systems Review of Systems: Constitutional: No chills, fatigue, night sweats, weight changes, +subjective fever ENT/Mouth: No ear pain, hearing loss, nasal congestion, sinus pain, rhinorrhea, +sore throat, +odynophagia, No dysphagia Eyes: No eye pain, swelling, redness, vision changes, discharge Cardio: No chest pain, palpitations, THOMPSON, orthopnea, peripheral edema Pulm: No SOB, sputum, wheezing, dyspnea, hemoptysis, +cough GI: No nausea, vomiting, hematemesis, abdominal pain, diarrhea, constipation, hematochezia, melena : No irregular bleeding, dysuria, frequency, urgency, hesitancy, hematuria, flank pain MSK: No back pain, neck pain, joint pain, +myalgias Skin: No lesions, rashes Neuro: No weakness, numbness, paresthesias, LOC, dizziness, +headache All other systems reviewed and are negative. [facility] Past Medical History Attestation statement: The following information was validated with the patient. Source: old records reviewed and nursing notes reviewed Medical History HIV (human immunodeficiency virus infection) Social History Social History Patient Tobacco Use Status: Current everyday Tobacco user Tobacco use type: Cigarette Cigarette Packs Per Day: 1 Cigarettes Per Day: 20.0 Years Smoked: 21 Second Hand Smoke Exposure: No Advance Directives: No Advance Directives Information Provided: No service: No Current occupational status: unemployed Physical Exam ED Vital Signs: Vital Signs - 24 hr 05/19/23 11:49 Temperature 99.3 F Pulse Rate 114 H Respiratory Rate 20 Blood Pressure 138/78 Pulse Oximetry 97 Oxygen Delivery Method Room Air BMI result Body Mass Index 23.5 Vital signs stable, afebrile Const General: cooperative, comfortable, no acute distress, alert and awake Orientation/consciousness: patient oriented x3 Limitations: no limitations HENMT Other: + posterior oropharynx erythematous, no edema, uvula is midline, no tonsilar exudates or peritonsillar masses, controlling secretions and speaking in complete sentences. Head: Yes normal to inspection, Yes normocephalic and Yes atraumatic Ears: hearing grossly normal bilaterally, external ears normal, TM's normal bilaterally, EAC's normal, mastoids normal and no periauricular adenopathy General nose exam: Normal external nose present and No nasal discharge present Face and sinus: Yes normal facial exam and Yes sinuses nontender Eyes General: appearance normal, both eyes and all related structures Pupils: Equal, round and reactive pupils present Neck Other: + no cervical, submandibular or submental LAD. Neck: Yes normal visual inspection and Yes full ROM Resp Effort & Inspection: normal respiratory effort and able to speak in complete sentences Auscultation: clear to auscultation bilaterally Cardio Rate: regular rate Rhythm: regular rhythm GI Inspection: Yes normal to inspection Palpation (GI): Soft to palpation and nontender Skin General skin exam: no rashes or lesions noted Neuro General: patient oriented x3 and gait normal Cranial nerves: Yes Equal, round and reactive pupils present Extrem General: Yes normal to inspection and Yes capillary refill normal Course Course Course Narrative: RME- 33 year old male presents for evaluation of flu like symptoms for the last 3 days. Reevaluation(s) Reevaluation #1: 9561-- patient has tested positive for influenza A. Discussed workup results with patient. One dose of tamiflu administered in ED. Tamiflu rx sent to pharmacy. Educated on symptomatic treatment. Discussed worrisome signs and symptoms and when to return to the ED. Patient has remained stable throughout ED visit today. All questions answered at this time. Patient is agreeable with disposition and stable for discharge. Medications Administered Discontinued Medications Generic Name Dose Route Start Last Admin Trade Name Freq PRN Reason Stop Dose Admin Oseltamivir Phosphate 75 mg 05/19/23 14:27 05/19/23 14:30 Oseltamivir Phosphate 75 Mg Capsule PO 05/19/23 14:28 75 mg ONCE ONE Administration Medical Decision Making Medical Decision Making MDM Narrative: 33-year-old male with pmhx significant for HIV presents to the ED today for evaluation of I feel like I'm dying . Patient tachycardic likely secondary to f ever/ viral illness. He is nontoxic appaering and in NAD. Lungs CTA bilaterally. Posterior oropharynx without erythema or edema. No tonsillar exudates or edema. Uvula midline. Controlling secretions and speaking complete sentences. Bilateral EACs and TMs WNL. Differential diagnosis includes viral illness, pneumonia, bronchitis Serology ordered in triage. Plan to review and re-evaluate. Differential Diagnosis Differential Diagnoses: The differential diagnosis associated with the presentation includes as above. Admission/Observation Not indicated Lab Data [facility] Lab Attestation statement: I reviewed the patient's lab results. as above Labs: Lab Results 05/19/23 Range/Units 11:57 Influenza Type A (PCR) POSITIVE A (Negative) Influenza Type B (PCR) NEGATIVE (Negative) RSV RNA Qual (PCR) NEGATIVE (Negative) SARS-CoV-2 RNA (RT-PCR) NEGATIVE (Negative) External Record Review External record reviewed: Inpatient record Prescription Management I considered prescription management with: Pain Medication and Antiviral (tamiflu) Social Determinants Patient?s care significantly limited by Social Determinants of Health including: Other Social Determinant of Health Critical Care Time Critical Care Time Critical Care Time: No Discharge Plan Discharge Clinical Impression: Influenza A Patient Disposition: Home, Self-Care Instructions: Influenza (ED), Flu Shot (Vaccine) for Adults (ED) Additional Instructions: You tested positive for Influenza A. This does not require treatment with antibiotics. Treatment for this is supportive care. Tamiflu has been sent to the pharmacy for you to take over the next 5 days. You may purchase OTC cough medicine. Alter ibuprofen and Tylenol for fevers and body aches. Follow-up with PCP as needed. If symptoms persist or worsen please return to the emergency department. The case of an emergency call 911. Prescriptions: New oseltamivir [Tamiflu] 75 mg capsule 75 mg PO BID 5 Days Qty: 10 0RF No Action bupropion HCl 150 mg tablet sustained-release 12 hr 150 mg PO DAILY trazodone 50 mg tablet 1 tab PO BEDTIME Biktarvy 50-200-25 mg tablet 1 tab PO DAILY ciprofloxacin HCl [Cipro] 500 mg tablet 500 mg PO BID Qty: 8 0RF Referrals: [facility] [Primary Care Provider] - Interventions: ED Discharge Assessment Last Done: 05/19/23 14:33 Discharge Date/Time: 05/19/23 14:34
[2023-05-19 12:42] LABS: Influenza A PCR POSITIVE (Negative); Influenza B PCR NEGATIVE (Negative); Resp Syncy Virus RNA Qual PCR NEGATIVE (Negative); SARS COV2 PCR INHOUSE NEGATIVE (Negative)
[2023-05-19] MEDS: Oseltamivir Phosphate 75 MG CAPSULE PO (14:30)
== END 2023-05-19 14:34 | disposition home or self-care (01) ==
PROVIDERS: Physician Assistant; Emergency Provider Emergency Medicine Emergency Medical Services
DX: J10.1 Influenza due to other identified influenza virus with other respiratory manifestations (principal); R05.9 Cough, unspecified; R09.81 Nasal congestion
CPT/HCPCS: 0241U; 99282; 99283

== ENCOUNTER 2024-02-29 09:56 | Outpatient (REF) | payer MEDICAID, SELFPAY ==
[2024-02-29 11:04] LABS: MANUAL DIFF FLAG NO
[2024-02-29 11:06] LABS: Basophils Percent Auto 0.3 % (0-2); Eosinophils Absolute Auto 0.3 X10*3/uL (0.0-0.4); Eosinophils Percent Auto 4.8 % (0-4); Hematocrit 42.7 % (42.0-52.0); Hemoglobin 15.5 g/dl (14.0-18.0); Imm Gran Abs Auto 0.02 X10*3/uL (0.00-0.03); Imm Gran Pct Auto 0.3 % (0.0-0.4); Lymphocytes Absolute Auto 1.9 X10*3/uL (1.2-4.9); Lymphocytes Percent Auto 31.5 % (20-40); Mean Corpuscular HGB Conc 36.3 g/dl (31.0-36.0); Mean Corpuscular Hemoglobin 31.9 pg (27.0-33.0); Mean Corpuscular Volume 87.9 fL (80.0-98.0); Monocytes Absolute Auto 0.6 X10*3/uL (0.1-1.2); Neutrophils Absolute Auto 3.2 x10*3/uL (2.0-8.3); Neutrophils Percent Auto 53.1 % (45-73); Platelet Count 255 X10*3/uL (160-400); Red Blood Count 4.86 X10*6/uL (4.60-5.80); Red Cell Distribution Width 13.2 % (11.0-16.0); White Blood Count 6.1 X10*3/uL (4.8-10.8)
[2024-02-29 11:13] LABS: Estimated Average Glucose 94 mg/dL; Hemoglobin A1C 118.3438 umol/L; Hemoglobin A1c % 4.9 % (<6.0); Total Hemoglobin (HGBA1C) 3963.9282 umol/L
[2024-02-29 11:38] LABS: HBS Num1 37.26 mIU/mL (0-7.99); HBc Num1 0.41 S/CO (0.00-0.79); HBsAGNum1 0.49 S/CO (0.00-0.99); Hepatitis B Core Antibody Nonreactive (Nonreactive); Hepatitis B Surface Antigen Negative (Negative); ~HepC Num1 0.19 S/CO (0.00-0.79); ~Hepatitis B Surface Antibody REACTIVE (Nonreactive); ~Hepatitis C Antibody Nonreactive (Nonreactive)
[2024-02-29 11:39] LABS: Hepatitis A Antibody IgG Nonreactive (Nonreactive); ~Hepatitis A Antibody IgG 0.82 S/CO (0.00-0.99)
[2024-02-29 11:54] LABS: Alanine Aminotransferase 90 U/L (0-40); Albumin Level 4.7 g/dL (3.5-5.0); Alkaline Phosphatase 94 U/L (39-117); Anion Gap 11 (12-20); Aspartate Amino Transferase 40 U/L (5-37); Bilirubin Total 0.5 mg/dL (0.0-1.0); Blood Urea Nitrogen 15 mg/dL (9-16); Calcium 10.1 mg/dL (8.4-10.2); Carbon Dioxide 29 mmol/L (22-29); Chloride 105 mmol/L (96-108); Estimated Glomerular Filt Rate > 60; Glucose Random 80 mg/dL (60-115); Potassium 3.8 mmol/L (3.3-5.1); Sodium 141 mmol/L (135-145)
[2024-03-03 11:29] LABS: TS Negative Control Passed; TS Panel A 0; TS Panel B 0; TS Positive Control Passed; TSpotTB Negative (Negative)
[2024-03-03 14:53] LABS: HIV RNA PCR Qn Copies 51 copies/mL (NOT DETECTED); HIV RNA PCR Qn Log Copies 1.71 (NOT DETECTED)
[2024-03-04 20:08] LABS: RPR Rapid Plasma Reagin REACTIVE (NON-REACTIVE)
[2024-03-05 17:43] LABS: Absolute CD3 Count 1431 cells/uL (840-3060); Absolute CD4 Count 303 cells/uL (490-1740); Absolute CD8 Count 1077 cells/uL (180-1170); Absolute Lymphocytes 1661 cells/uL (850-3900); CD4 CD8 Ratio 0.28 (0.86-5.00); Percent CD3 Cells 86 % (57-85); Percent CD4 Cells 18 % (30-61); Percent CD8 Cells 65 % (12-42)
== END 2024-02-29 09:57 | disposition home or self-care (01) ==
LOC: HO.HHCL 09:56
PROVIDERS: Visit Provider Internal Medicine
DX: B20 Human immunodeficiency virus [HIV] disease (principal)
CPT/HCPCS: 36415; 80053; 83036; 85025; 86359; 86360; 86481; 86592; 86593; 86704; 86706; 86708; 86803; 87340; 87536

== ENCOUNTER 2024-03-07 10:16 | Outpatient (REF) | payer MEDICAID, SELFPAY ==
[2024-03-07 13:18] LABS: Amphetamine Screen Urine Not Detected (Not Detect); Barbiturates, Urine Not Detected (Not Detect); Benzodiazepines Screen Urine Not Detected (Not Detect); Buprenorphine Scr Not Detected (Not Detect); Cannabinoid Screen Urine Not Detected (Not Detect); Cocaine Screen Urine Not Detected (Not Detect); Fentanyl, urine Not Detected (Not Detect); Methadone Screen, Urine Not Detected (Not Detect); Opiate Screen Urine Not Detected (Not Detect); Oxycodone Screen Urine Not Detected (Not Detect); Phencyclidine Screen Urine Not Detected (Not Detect)
== END 2024-03-07 10:17 | disposition home or self-care (01) ==
LOC: HO.HHCL 10:16
PROVIDERS: Visit Provider Registered Nurse
DX: F19.11 Other psychoactive substance abuse, in remission (principal)
CPT/HCPCS: 80307